=== PATIENT | female | born 1940 | race Caucasian/White ===

== ENCOUNTER 2016-08-17 10:08 | Inpatient (IN) | payer MEDICARE ==
[~2016-08-17] VITALS: Ht 170.2 cm; Wt 89.9 kg
[2016-08-17 10:58] LABS: VENOUS BASE EXCESS -1.8 (-2.0-2.0); VENOUS O2 SATURATION 96.3 % (60.0-80.0); VENOUS PARTIAL PRESSURE CO2 35.1 mmHg (38.0-50.0); VENOUS PARTIAL PRESSURE O2 81.2 mmHg (30.0-50.0); VENOUS TOTAL CO2 23.3 MEQ/L (24.0-28.0)
[2016-08-17] MEDS ORDERED: ONDANSETRON 4MG/2ML VIAL (J2405) IV PRN (11:45)
[2016-08-17] MEDS ORDERED: GLUCAGON FOR INJ 1 MG VIAL (J1610) SC PRN (11:45)
[2016-08-17] MEDS ORDERED: DEXTROSE 50% 50 ML SYRINGE IV PRN (11:45)
[2016-08-17] MEDS ORDERED: GLUCOSE 4 GM CHEW TABLET PO PRN (11:45)
[2016-08-17] MEDS ORDERED: PRAV20TA2 PO (11:57)
[2016-08-17] MEDS ORDERED: MILKSUS PO (11:57)
[2016-08-17] MEDS ORDERED: TRAD5TAB PO (11:57)
[2016-08-17] MEDS ORDERED: GLIP5TAB15 PO (11:57)
[2016-08-17] MEDS ORDERED: MUCI600T34 PO (11:57)
[2016-08-17] MEDS ORDERED: LISI-538 PO (11:57)
[2016-08-17] MEDS ORDERED: MAGN250T2 PO (11:57)
[2016-08-17] MEDS ORDERED: VITA100072 PO (11:57)
[2016-08-17] MEDS ORDERED: FURO20TA2 PO (11:57)
[2016-08-17] MEDS ORDERED: METF1000 PO (11:57)
[2016-08-17] MEDS ORDERED: AMLO5TAB2 PO (11:57)
[2016-08-17] MEDS ORDERED: LACT10SO29 PO (11:57)
[2016-08-17] MEDS ORDERED: DRIS50002 PO (11:57)
[2016-08-17] MEDS ORDERED: ATEN50TA2 PO (11:57)
[2016-08-17] MEDS ORDERED: IBUPOTC PO (11:57)
[2016-08-17] MEDS ORDERED: KLOR1CAP2 PO (11:57)
[2016-08-17] MEDS ORDERED: BISA10SU4 PR (11:57)
[2016-08-17] MEDS ORDERED: FLEEENE4 PR (11:57)
[2016-08-17] MEDS: HumaLOG INSULIN (NovoLOG) PER UNIT SC SCH ×3 (12:00→21:00)
[2016-08-17] MEDS: LACTULOSE 20 GM/30 ML SYRUP UD PO SCH ×2 (12:00→17:16)
[2016-08-17] MEDS ORDERED: ONDANSETRON 4MG/2ML VIAL (J2405) As Ordered ONE (12:25)
[2016-08-17 12:29] LABS: MEAN CORPUSCULAR HEMOGLOBIN 32.6 pg (27.0-33.0); MEAN CORPUSCULAR HGB CONC 31.6 g/dl (32.0-36.5); MEAN CORPUSCULAR VOLUME 103.2 fl (80.0-96.0); RED CELL DISTRIBUTION WIDTH 16.2 % (11.5-14.5); WHITE BLOOD COUNT 3.8 K/mm3 (4.0-10.0)
[2016-08-17 12:49] LABS: ALBUMIN 2.8 GM/DL (3.2-5.2); ALBUMIN/GLOBULIN RATIO 0.72 (1.00-1.93); ALKALINE PHOSPHATASE 146 U/L (45-117); ALT/SGPT 28 U/L (12-78); ANION GAP 12 MEQ/L (8-16); AST/SGOT 37 U/L (15-37); BILIRUBIN,TOTAL 2.8 MG/DL (0.2-1.0); BLOOD UREA NITROGEN 12 MG/DL (7-18); CALCIUM LEVEL 7.9 MG/DL (8.8-10.2); CARBON DIOXIDE LEVEL 24 MEQ/L (21-32); CHLORIDE LEVEL 108 MEQ/L (98-107); CREATININE FOR GFR 0.79 MG/DL (0.55-1.02); GLOMERULAR FILTRATION RATE > 60.0 (>39); GLUCOSE, FASTING 158 MG/DL (83-110); POTASSIUM SERUM 3.4 MEQ/L (3.5-5.1); SODIUM LEVEL 144 MEQ/L (136-145); TOTAL PROTEIN 6.7 GM/DL (6.4-8.2)
[2016-08-17 12:50] LABS: INR 1.58
[2016-08-17] MEDS ORDERED: IBUPROFEN 100 MG/5 ML SUSP UDC As Ordered ONE (13:15)
--- NOTE | 2016-08-17 14:19 | EDDOCDS ---
Physician Documentation [facility] Name: Laurie Ndiaye Age: 76 yrs Sex: Female : 1940 Arrival Date: 08/17/2016 Time: 10:08 Bed Admit Hold Private MD: Disposition: 08/17/16 10:48 Hospitalization ordered by Isrrael Thompson for Inpatient Admission. Preliminary diagnosis are Urinary tract infection, site not specified, Nonspecific elevation of levels of transaminase and lactic acid dehydrogenase [LDH]. - Bed requested for PCU. - Status is Inpatient Admission. murtazak - Condition is Stable. - Problem is new. - Symptoms are unchanged. Historical: - Allergies: PENICILLINS (Rash); SULFA (SULFONAMIDES) (Rash); Avelox (Unknown); tylenol (Affects liver function); liver failure; - Home Meds: 1. amlodipine 5 mg Oral tab 1 tab once daily (Last dose: 08/17/2016) 2. atenolol 50 mg Oral tab 1 tab once daily (Last dose: 08/16/2016) 3. Bisacodyl 10 mg Oral as needed 4. furosemide 20 mg Oral tab 1 tab once daily 5. glipizide 5 mg Oral tr24 1 tab once daily 6. lactulose 10 gram/15 mL (15 mL) Oral soln 5 mL as needed 7. lisinopril 20 mg Oral tab 1 tab once daily 8. magnesium oxide 250 mg Oral tab daily 9. metformin 1,000 mg Oral tab 2 times per day 10. Milk of Magnesia Oral as needed 11. pravastatin 20 mg oral tab 1 tab once daily 12. Vitamin B-12 1,000 mcg Oral tab daily 13. Vitamin D Oral 1,000 unit daily 14. Zoloft 25 mg Oral tab 1 tab once daily 15. Tradjenta 5 mg oral tab 1 tab once daily - PMHx: Hypertension; Hypercholesterolemia; diabetes; - Family history: Not pertinent. - Social history: Smoking status: Patient states was never smoker of tobacco. No barriers to communication noted. - : The pt / caregiver states he / she is not on anticoagulants. Home medication list is obtained from transfer record. - Exposure Risk Screening:: None identified. Vital Signs: 08/17 10:28 BP 115 / 82; Pulse 102; Resp 16; Temp 99.0(O); Weight 67.13 kg / 148 lbs; Height 5 ft. jmk 7 in. (170.18 cm); 11:41 BP 153 / 68; Pulse 110; Resp 20; Temp 101.2(O); jmk 12:33 BP 153 / 65; Pulse 114; Resp 16; Temp 101.4(TE); jmk 12:35 Temp 101.0(TE); nb2 13:26 BP 137 / 105; Pulse 114; Resp 18; Pulse Ox 94% on R/A; jmk 14:02 Temp 101.0(O); jmk 14:07 BP 119 / 57 (auto/); jmk 14:07 Pulse 106 MON; Pulse Ox 92% ; jmk 10:28 Body Mass Index 23.18 (67.13 kg, 170.18 cm) terrell MDM: 10:12 BED REQUEST+ADM ordered. EDMS 10:34 Lactic Acid (Aldana tube on ice) Ordered. EDMS 10:35 Venous Blood Gas (large pea green tube on ice) Ordered. EDMS 10:40 NS 0.9% 600 ml IV at bolus once ordered. sd1 10:59 Financial registration complete. lg 11:38 COMPLETE BLOOD COUNT Ordered. EDMS 11:38 COMPLETE COMPHRENSIVE METABOLI Ordered. EDMS 11:38 TROPONIN Ordered. EDMS 11:38 AMMONIA Ordered. EDMS 11:38 URINALYSIS Ordered. EDMS 11:38 URINE CULTURE Ordered. EDMS 11:38 BLOOD CULTURES Ordered. EDMS 11:38 BLOOD CULTURES Ordered. EDMS 11:41 Lactic Acid (Aldana tube on ice) Reviewed. sd1 11:41 Venous Blood Gas (large pea green tube on ice) Reviewed. sd1 11:41 Admission / Observation Status ordered. EDMS 11:41 2 GRAM SODIUM DIET ordered. EDMS 11:44 PROTHROMBIN TIME PROFILE\E\INR Ordered. EDMS 12:14 [facility] Payment Agreement was scanned into [employer] and attached to record. lg 12:17 LACTIC ACID LEVEL, LACTATE Ordered. EDMS 12:37 Ondansetron 4 mg IVP once ordered. jmk 12:37 NS 0.9% 1000 ml IV at 50 mL/hr continuous ordered. jmk 12:41 Fingerstick Blood Sugar Ordered. EDMS 13:27 Ibuprofen 200 mg PO once ordered. murtazak Point of Care Testing: Blood Glucose: 12:36 Blood Glucose: 136 mg/dL; jmk Ranges: Administered Medications: 10:54 Not Given (total of 3100 ml administered prior to arrival to [facility]): NS 0.9% 600 ml IV at [facility] bolus once 12:37 Drug: NS 0.9% 1000 ml Route: IV; Rate: 50 mL/hr; Site: right wrist; k 12:38 Drug: Ondansetron 4 mg Route: IVP; Site: right wrist; k 13:27 Drug: Ibuprofen 200 mg Route: PO; [facility] Signatures: Dispatcher [employer] Rachelle King MD MD sd1 Jonas Tomas,RN RN Anant Kemp, Clare Brunner lg RN RN jc4 The chart was reviewed and I authenticate all verbal orders and agree with the evaluation and treatment provided.Attachments: 12:14 [facility] Payment Agreement lg MTDD
--- NOTE | 2016-08-17 14:19 | EDDOCDS ---
Nurse's Notes [facility] Name: Laurie Garcia Age: 76 yrs Sex: Female : 1940 Arrival Date: 08/17/2016 Time: 10:08 Bed Admit Hold Private MD: Diagnosis: Urinary tract infection, site not specified;Nonspecific elevation of levels of transaminase and lactic acid dehydrogenase [LDH] Presentation: 08/17 10:13 Presenting complaint: Patient states: Resides at [facility]. seen at [facility] this AM for altered mentation. Transferred here to R/O sepsis,. pt is alert and cheerful and without complaints. Adult Sepsis Screening: The patient does not have new or worsening altered mentation. Patient's respiratory rate is less than 22. Systolic blood pressure is greater than 100. Patient has a qSOFA score of 0- Negative Sepsis Screen. Suicide/Homicide risk assessment- the patient denies having any suicidal and/or homicidal ideations and does not present with any other emotional, behavioral or mental health complaints. Status: Patient is not a service greeter or dependent. Transition of care: patient was not received from another setting of care. 10:13 Acuity: KATIE Level 3 [facility] 10:13 Method Of Arrival: Ambulance [facility] Historical: - Allergies: PENICILLINS (Rash); SULFA (SULFONAMIDES) (Rash); Avelox (Unknown); tylenol (Affects liver function); liver failure; - Home Meds: 1. amlodipine 5 mg Oral tab 1 tab once daily (Last dose: 08/17/2016) 2. atenolol 50 mg Oral tab 1 tab once daily (Last dose: 08/16/2016) 3. Bisacodyl 10 mg Oral as needed 4. furosemide 20 mg Oral tab 1 tab once daily 5. glipizide 5 mg Oral tr24 1 tab once daily 6. lactulose 10 gram/15 mL (15 mL) Oral soln 5 mL as needed 7. lisinopril 20 mg Oral tab 1 tab once daily 8. magnesium oxide 250 mg Oral tab daily 9. metformin 1,000 mg Oral tab 2 times per day 10. Milk of Magnesia Oral as needed 11. pravastatin 20 mg oral tab 1 tab once daily 12. Vitamin B-12 1,000 mcg Oral tab daily 13. Vitamin D Oral 1,000 unit daily 14. Zoloft 25 mg Oral tab 1 tab once daily 15. Tradjenta 5 mg oral tab 1 tab once daily - PMHx: Hypertension; Hypercholesterolemia; diabetes; - Family history: Not pertinent. - Social history: Smoking status: Patient states was never smoker of tobacco. No barriers to communication noted. - : The pt / caregiver states he / she is not on anticoagulants. Home medication list is obtained from transfer record. - Exposure Risk Screening:: None identified. Screenin:09 Infection Control. deg 10:29 Screening information is obtained from the patient. Fall risk: No risks identified. terrell Assistance ADL's: Requires assistance with meal preparation, this assistance is provided by residence staff, bathing, assistance is provided by residence staff, dressing, assistance is provided by residence staff, housework, assistance is provided by residence staff, medication administration, assistance is provided by residence staff. Abuse/DV Screen: The patient / caregiver reports he/she is: not in a situation that causes fear, pain or injury. Nutritional screening: No deficits noted. Advance Directives: Currently, there is a health care proxy, jaida garcia. There is no active DNR order. There is no living will. There is no Power of Paraeducator. home support is adequate. Assessment: 10:35 General: Appears in no apparent distress, smiling pleasant. responses eagerly provided. terrell denies urinary symptoms, but indicates her problem is a UTI. Gomez catheter intact with clear yellow urine draining. presently alert and oriented. chest CTA. without resp distress or work of breathing. chest CTA. abd soft and non distended with bowel sounds present x 4. monitor is st without ectopy. SL intact to right forearm. Neurological: Level of Consciousness is awake, alert, Oriented to person, place, Locomotive Mechanic are equal bilaterally. Cardiovascular: Capillary refill < 3 seconds Clubbing of nail beds is absent Heart tones S1 S2 present Edema is absent. Rhythm is sinus tachycardia. Respiratory: No deficits noted. Airway is patent Respiratory effort is even, unlabored, Respiratory pattern is regular, Breath sounds are clear bilaterally. GI: Abdomen is flat, non- distended obese, Bowel sounds present X 4 quads. Abd is soft and non tender X 4 quads. : intact gomez with clear liquid draiange. 12:07 General: Appears quietly resting. denies pain. Gomez with clear yellow drainage. [facility] hospitalist paged to obtain fever therapy. 12:33 General: Appears confused and restless.. Unable to volunteer information. vomited large jmk amount bile colored liquid emesis. cleansed and repositioned. resistant to interventions. IV fluids again intiated and medicated with zofran. 13:24 General: Appears resting with eyes closed. does have a verbal response of no to jmk interventions and attempts to resist. without resp distress. chest CTA. maintaining sat of 94% room air. chest CTA. abd unremarkable. Gomez draining clear yellow urine. Moves all ext readilly.. 14:00 General: Appears Mentation has again returned to as when 1st arrived to ED. k 14:15 General: Appears again alert and conversive. Monitor has remained as st. denies pain. [facility] Gomez is patent. no resp distress. IV infusing. denies additional nausea. smiling, conversive and cooperative. Admitted. Vital Signs: 10:28 BP 115 / 82; Pulse 102; Resp 16; Temp 99.0(O); Weight 67.13 kg; Height 5 ft. 7 in. [facility] (170.18 cm); 11:41 BP 153 / 68; Pulse 110; Resp 20; Temp 101.2(O); jmk 12:33 BP 153 / 65; Pulse 114; Resp 16; Temp 101.4(TE); jmk 12:35 Temp 101.0(TE); nb2 13:26 BP 137 / 105; Pulse 114; Resp 18; Pulse Ox 94% on R/A; k 14:02 Temp 101.0(O); k 14:07 BP 119 / 57 (auto/); k 14:07 Pulse 106 MON; Pulse Ox 92% ; jmk 10:28 Body Mass Index 23.18 (67.13 kg, 170.18 cm) [facility] Vitals: 10:28 Log In Time N/A - ambulance arrival. [facility] ED Course: 10:09 Patient visited by Diane Gardiner, Cash Posting Clerk. deg 10:09 Patient moved to Waiting deg 10:10 Patient moved to 5 deg 10:11 Rachelle Conrad MD is Attending Physician. sd1 10:16 Triage Initiated [facility] 10:19 Patient visited by Rachelle Conrad MD. sd1 10:29 The patient / caregiver is instructed regarding the plan of care and ED course. jmk 10:29 Maintain field IV. Gauge & site: 20 right forearm. jmk 10:38 Patient visited by Jonas Tomas,RN. jmk 10:48 Isrrael Thompson is Hospitalizing Provider. sd1 10:48 Venous Blood Gas (large pea green tube on ice) Sent. jmk 10:48 Lactic Acid (Aldana tube on ice) Sent. jmk 11:26 Notified attending ED physician of lactic acid level 6.0 as reported via phone by lab jc4 staff. Dr. Conrad made aware. 11:53 Patient moved to Admit Hold jc4 12:09 Patient visited by Jonas Tomas,ANDRIY. jmk 12:14 Patient name changed from Laurie\S\\S\Senthil\S\ to Laurie\S\M\S\Senthil. EDMS 12:14 [facility] Payment Agreement was scanned into [employer] and attached to record. lg 12:35 Patient visited by Amber Mercado. nb2 14:07 No procedures done that require assistance. k Administered Medications: 10:54 Not Given (total of 3100 ml administered prior to arrival to [facility]): NS 0.9% 600 ml IV at [facility] bolus once 12:37 Drug: NS 0.9% 1000 ml Route: IV; Rate: 50 mL/hr; Site: right wrist; jmk 12:38 Drug: Ondansetron 4 mg Route: IVP; Site: right wrist; jmk 13:27 Drug: Ibuprofen 200 mg Route: PO; k Point of Care Testing: Blood Glucose: 12:36 Blood Glucose: 136 mg/dL; k Ranges: Intake: 10:54 IV: 3100.00ml (NS); Total: 3100.00ml. k Order Results: Lab Order: Lactic Acid (Aldana tube on ice); SPEC'M 08/17/16 10:46 Test: LACTIC ACID LEVEL, LACTATE; Value: 6.0; Range: 0.4-2.0; Abnormal: Above upper panic limits; Units: MMOL/L; Status: F Lab Order: Venous Blood Gas (large pea green tube on ice); SPEC'M 08/17/16 10:46 Test: VENOUS PH; Value: 7.420; Range: 7.330-7.430; Units: UNITS; Status: F Test: VENOUS PARTIAL PRESSURE CO2; Value: 35.1; Range: 38.0-50.0; Abnormal: Below low normal; Units: mmHg; Status: F Test: VENOUS PARTIAL PRESSURE O2; Value: 81.2; Range: 30.0-50.0; Abnormal: Above high normal; Units: mmHg; Status: F Test: VENOUS TOTAL CO2; Value: 23.3; Range: 24.0-28.0; Abnormal: Below low normal; Units: MEQ/L; Status: F Test: VENOUS HCO3; Value: 22.3; Range: 23.0-27.0; Abnormal: Below low normal; Units: MEQ/L; Status: F Test: VENOUS BASE EXCESS; Value: -1.8; Range: -2.0-2.0; Status: F Test: VENOUS STANDARD HCO3; Value: 23.0; Units: MEQ/L; Status: F Test: VENOUS O2 SATURATION; Value: 96.3; Range: 60.0-80.0; Abnormal: Above high normal; Units: %; Status: F Lab Order: COMPLETE BLOOD COUNT; SPEC'M 08/17/16 12:01 Test: WHITE BLOOD COUNT; Value: 3.8; Range: 4.0-10.0; Abnormal: Below low normal; Units: K/mm3; Status: F Test: RED BLOOD COUNT; Value: 3.51; Range: 4.00-5.40; Abnormal: Below low normal; Units: M/mm3; Status: F Test: HEMOGLOBIN; Value: 11.4; Range: 12.0-16.0; Abnormal: Below low normal; Units: g/dl; Status: F Test: HEMATOCRIT; Value: 36.2; Range: 36.0-47.0; Units: %; Status: F Test: MEAN CORPUSCULAR VOLUME; Value: 103.2; Range: 80.0-96.0; Abnormal: Above high normal; Units: fl; Status: F Test: MEAN CORPUSCULAR HEMOGLOBIN; Value: 32.6; Range: 27.0-33.0; Units: pg; Status: F Test: MEAN CORPUSCULAR HGB CONC; Value: 31.6; Range: 32.0-36.5; Abnormal: Below low normal; Units: g/dl; Status: F Test: RED CELL DISTRIBUTION WIDTH; Value: 16.2; Range: 11.5-14.5; Abnormal: Above high normal; Units: %; Status: F Test: PLATELET COUNT, AUTOMATED; Value: 71; Range: 150-450; Abnormal: Below low normal; Units: k/mm3; Status: F Lab Order: COMPLETE COMPHRENSIVE METABOLI; SPEC'M 08/17/16 12:01 Test: GLUCOSE, FASTING; Value: 158; Range: 83-110; Abnormal: Above high normal; Units: MG/DL; Status: F Test: BLOOD UREA NITROGEN; Value: 12; Range: 7-18; Units: MG/DL; Status: F Test: CREATININE FOR GFR; Value: 0.79; Range: 0.55-1.02; Units: MG/DL; Status: F Test: GLOMERULAR FILTRATION RATE; Value: > 60.0; Range: >39; Status: F Test: SODIUM LEVEL; Value: 144; Range: 136-145; Units: MEQ/L; Status: F Test: POTASSIUM SERUM; Value: 3.4; Range: 3.5-5.1; Abnormal: Below low normal; Units: MEQ/L; Status: F Test: CHLORIDE LEVEL; Value: 108; Range: 98-107; Abnormal: Above high normal; Units: MEQ/L; Status: F Test: CARBON DIOXIDE LEVEL; Value: 24; Range: 21-32; Units: MEQ/L; Status: F Test: ANION GAP; Value: 12; Range: 8-16; Units: MEQ/L; Status: F Test: CALCIUM LEVEL; Value: 7.9; Range: 8.8-10.2; Abnormal: Below low normal; Units: MG/DL; Status: F Test: AST/SGOT; Value: 37; Range: 15-37; Units: U/L; Status: F Test: ALT/SGPT; Value: 28; Range: 12-78; Units: U/L; Status: F Test: ALKALINE PHOSPHATASE; Value: 146; Range: 45-117; Abnormal: Above high normal; Units: U/L; Status: F Test: BILIRUBIN,TOTAL; Value: 2.8; Range: 0.2-1.0; Abnormal: Above high normal; Units: MG/DL; Status: F Test: TOTAL PROTEIN; Value: 6.7; Range: 6.4-8.2; Units: GM/DL; Status: F Test: ALBUMIN; Value: 2.8; Range: 3.2-5.2; Abnormal: Below low normal; Units: GM/DL; Status: F Test: ALBUMIN/GLOBULIN RATIO; Value: 0.72; Range: 1.00-1.93; Abnormal: Below low normal; Status: F Test Note: ; Units are mL/min/1.73 m2 Chronic Kidney Disease Staging per NKF: Stage I & II GFR >=60 Normal to Mildly Decreased Stage III GFR 30-59 Moderately Decreased Stage IV GFR 15-29 Severely Decreased Stage V GFR <15 Very Little GFR Left ESRD GFR <15 on MAINTENANCE PAINTER APPRENTICE Lab Order: TROPONIN; SPEC'M 08/17/16 12:01 Test: TROPONIN I; Value: 0.02; Range: < 0.10; Units: NG/ML; Status: F Test Note: ; Troponin I Reference Interval for Visonys LOCI: 99th Percentile= 0.00-0.045 ng/ml Risk Stratification: <= 0.10 ng/ml Decreased Risk for Adverse Clinical Events. 0.10-1.50 ng/ml Increased Risk for Adverse Clinical Events. Evaluation of additional criterion and/or repeat testing in 2-6 hours is suggested to rule out myocardial damage. >= 1.50 ng/ml Indicative of Myocardial Injury. Lab Order: AMMONIA; SPEC'M 08/17/16 12:01 Test: AMMONIA; Value: 79; Range: <32; Abnormal: Above high normal; Units: uMOL/L; Status: F Lab Order: PROTHROMBIN TIME PROFILE\E\INR; SPEC'M 08/17/16 12:01 Test: PROTHROMBIN TIME; Value: 19.0; Range: 12.3-14.5; Abnormal: Above high normal; Units: SECONDS; Status: F Test: INR; Value: 1.58; Status: F Test Note: ; THERAPUTIC HUMAN INR VALUES INDICATIONS NORMAL RANGES PROPHYLAXIS/TREATMENT OF: VENOUS THROMBOSIS 2.0-3.0 PULMONARY EMBOLISM 2.0-3.0 PREVENTION OF SYSTEMIC EMBOLISM FROM: TISSUE HEART VALVES 2.0-3.0 ACUTE MYOCARDIAL INFARCTION 2.0-3.0 VALVULAR HEART DISEASE 2.0-3.0 ATRIAL FIBRILLATION 2.0-3.0 MECHANICAL VALVES(HIGH RISK) 2.5-3.5 RECURRENT MYOCARDIAL INFARCTION 2.5-3.5 Lab Order: Fingerstick Blood Sugar; DENISHA'M 08/17/16 12:32 Test: BEDSIDE GLUCOSE; Value: 161; Range: 83-110; Abnormal: Above high normal; Units: MG/DL; Status: F Outcome: 10:48 Decision to Hospitalize by Provider. sd1 13:40 Admission hand-off: Report called to ruth ann barton. terrell 14:07 Discharge Assessment: Patient awake, alert and oriented x 3. No cognitive and/or k functional deficits noted. Patient verbalized understanding of disposition instructions. patient administered narcotics - no. The following High Risk Discharge criteria are identified: None. Admitted to PCU accompanied by nurse, via stretcher, on monitor, with chart. Condition: good. No special radiology studies were completed. Property :Personal belongings accompany Pt. 14:18 Patient left the ED. terrell Signatures: Dispatcher [employer] EDRachelle Pierson MD MD sd1 Diane Gadriner, Cash Posting Clerk Unit deg Jonas Tomas,RN RN Anant Kemp, Clare Brunner lg, RN RN Amber Hsieh [id number]
[2016-08-17 14:48] VITALS: BP 108/52
[2016-08-17] MEDS: cefTRIAXone SOD 1 GM in D5W MINI-BAG PLUS 50 ML IV SCH (15:55)
[2016-08-17] MEDS: NS 1,000 ML IV SCH (15:56)
--- NOTE | 2016-08-17 20:52 | HPE ---
DATE OF ADMISSION: 08/17/2016 CHIEF COMPLAINT: Fatigue and confusion. PRIMARY CARE PHYSICIAN: Dr. Douglas at [facility]. DREDGE HAND: Dr. Tigist Simons. HISTORY OF PRESENT ILLNESS: The patient is a 76-year-old female who is a resident at [facility] and follows with Dr. Douglas, who over the last several days has reportedly been getting more lethargic and difficult to arouse in the evenings, and confused this morning. They had difficulty arousing her. She was found to be confused and as such, was sent to [facility]. At the time of her presentation there, she was found to be febrile with temperature of 101.9, and she was found to have lactic acid elevated at 7.2, elevated ammonia level 247, as well as some thrombocytopenia despite not being hypotensive. Given her elevated lactic acid and also she did have an abnormal urinalysis (UA), they felt that she would be better served with a facility that had clinical care and as such, she was transferred to the emergency room at [facility]. Upon my arrival to meet the patient, she is accompanied by her aunt and her daughter, who states the patient is back at her baseline in terms of cognitive functioning. She is awake, alert, and oriented to person and place, but not to time. She is aware of the situation and why she is in the hospital, but she cannot tell me the day. She cannot tell me the correct year or month. She is quite conversational, however, and denies any specific complaints at this time. She states that her urine has smelled abnormal, as though she has a urinary tract infection as she has had them in the past. Denies any kody increased frequency, urgency or dysuria. She did have a Zhao catheter placed at [facility]. She otherwise denies fevers or feeling unwell. She tells me that she has not been taking her lactulose as she is supposed to at the [facility] because it gives her diarrhea and she did not want to take it. PAST MEDICAL HISTORY: 1. Mild dementia. 2. Hypertension. 3. Dyslipidemia. 4. Diabetes. 5. 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 The patient is unsure if it is C. 6. Vitamin D deficiency. 7. B-cell lymphoma. PAST SURGICAL HISTORY: 1. Cholecystectomy. 2. Hysterectomy. ALLERGIES: 1. PENICILLIN, rash. 2. SULFA, rash. 3. AVELOX, unknown. 4. TYLENOL secondary to liver dysfunction. HOME MEDICATIONS: - Norvasc 5 mg daily - atenolol 50 mg daily - bisacodyl 10 mg as needed - Lasix 20 mg daily - glipizide 5 mg daily - lactulose 10 grams per 15 mL, 5 mL as needed - lisinopril 20 mg daily - magnesium oxide 250 mg daily - metformin 1 gram twice a day - milk of magnesia as needed - pravastatin 20 mg daily - vitamin B12 1000 mcg daily - vitamin D 1000 units daily - Zoloft 25 mg daily - Tradjenta 5 mg daily REVIEW OF SYSTEMS: Negative other than in history of present illness (HPI). FAMILY HISTORY: Noncontributory. SOCIAL HISTORY: The patient denies tobacco or alcohol or illicit drug use. [facility] a [facility]. PHYSICAL EXAMINATION: VITAL SIGNS: Blood pressure 115/52, pulse 102, respiratory rate 16, temperature 99. Temperature maximum (T-max) reportedly at [facility] 101.9. GENERAL: She is a pleasant, elderly female lying flat on a stretcher. Appears to be in no acute distress whatsoever. HEENT: Cranial nerves II through XII are grossly intact. She has dry mucous membranes. No elevation of central venous pressure. CARDIOVASCULAR: S1, S2 regular with a crescendo-decrescendo systolic murmur. RESPIRATORY: Clear. ABDOMEN: Benign. No suprapubic tenderness or costovertebral angle tenderness. EXTREMITIES: No clubbing, cyanosis or edema. LABORATORY DATA: From [facility], WBC is 4.7, hemoglobin 10.3, platelet count 69. Ammonia 247. Lactic acid 7.2. INR 1.6. Anion gap 18. Sodium 139, potassium 3.2, chloride 100, bicarbonate 21, BUN 11, creatinine 0.6, glucose 219. Urinalysis is abnormal for too numerous to count WBCs, as well as significant amount of leukocyte esterase and bacteria. ASSESSMENT AND PLAN: This is a 76-year-old female with metabolic encephalopathy possibly secondary to urinary tract infection versus hepatic encephalopathy, as well as lactic acidosis. 1. Metabolic encephalopathy. Seems to be resolving and waxing and waning mental status. I suspect the patient has underlying dementia which has been worsened by urinary tract infection. Her ammonia level is significantly elevated but, given that her symptoms have already improved, I doubt this is the etiology as she has not received any significant lactulose. I will start her on lactulose 15 every six hours. It will be held for bowel movements greater than six. She did not exhibit asterixis on her exam. Suspicion for this is lower, so it is more likely related to a urinary tract infection. She has been started on ceftriaxone which I will continue. I will obtain blood cultures, urine culture, and repeat a urinalysis here. She is hemodynamically stable. I do not think she needs critical care. I will admit her. 2. Lactic acidosis. Appears to be disproportionate to the sepsis syndrome the patient is presenting with. She is not hemodynamically unstable. She is well perfused. She has baseline renal function. I suspect this may be more related to metformin use and as such, I will discontinue her oral antihyperglycemics and start her on insulin sliding scale, consistent carbohydrate diet, and continue to monitor. I will check another lactic acid now and trend. I will gently hydrate her and admit her to the progressive care unit with close monitoring. 3. Liver cirrhosis. May also be the likely etiology for her thrombocytopenia and elevated INR. We will recheck and simply monitor these for now. She thinks it is secondary to hepatitis C but she is unsure. We will order a specialist regarding this. For the time being, we will hold her Lasix. 4. Hypertension. Given that she has an elevated lactic acid and she is normotensive, for the time being I will hold her Norvasc 5 mg, atenolol 50 mg, and lisinopril 20 mg, as well as her Lasix 20 mg. Should she become more hemodynamically stable, I would restart her amlodipine and atenolol first if she requires some medication for hypertension. 5. Dyslipidemia. Continue with pravastatin. 6. Depression. Continue with Zoloft. 7. Vitamin D deficiency. Continue with supplementation. 8. Thrombocytopenia likely related to cirrhosis. DISPOSITION: The patient is admitted to the progressive care unit. We will monitor. Should all of her symptoms resolve, she can likely disposition back to [facility] as soon as possible.
[2016-08-17 21:08] VITALS: BP 139/64
[2016-08-17] MEDS: PRAVASTATIN 20 MG TAB PO SCH (21:24)
[2016-08-17] MEDS: IBUPROFEN 200 MG TAB PO PRN (21:26)
[2016-08-17 23:20] VITALS: BP 130/58
[2016-08-18 05:46] LABS: MEAN CORPUSCULAR HEMOGLOBIN 32.3 pg (27.0-33.0); MEAN CORPUSCULAR HGB CONC 30.5 g/dl (32.0-36.5); MEAN CORPUSCULAR VOLUME 105.9 fl (80.0-96.0); RED CELL DISTRIBUTION WIDTH 16.3 % (11.5-14.5)
[2016-08-18 05:58] LABS: ANION GAP 10 MEQ/L (8-16); BLOOD UREA NITROGEN 13 MG/DL (7-18); CALCIUM LEVEL 7.6 MG/DL (8.8-10.2); CARBON DIOXIDE LEVEL 25 MEQ/L (21-32); CHLORIDE LEVEL 110 MEQ/L (98-107); CREATININE FOR GFR 0.68 MG/DL (0.55-1.02); GLOMERULAR FILTRATION RATE > 60.0 (>39); GLUCOSE, FASTING 163 MG/DL (83-110); POTASSIUM SERUM 3.5 MEQ/L (3.5-5.1); SODIUM LEVEL 145 MEQ/L (136-145)
[2016-08-18] MEDS: LACTULOSE 20 GM/30 ML SYRUP UD PO SCH ×4 (06:07→17:15)
[2016-08-18 07:48] VITALS: BP 131/66
[2016-08-18] MEDS: HumaLOG INSULIN (NovoLOG) PER UNIT SC SCH ×4 (08:32→20:11)
[2016-08-18] MEDS: NS 1,000 ML IV SCH (08:32)
[2016-08-18] MEDS ORDERED: VITAMIN D 1,000 INTERNATIONAL UNITS TABLET PO SCH (09:00)
[2016-08-18] MEDS ORDERED: SERTRALINE HCL 25 MG TABLET PO SCH (09:00)
--- NOTE | 2016-08-18 09:57 | IPNPDOC ---
Date of Service/Time 08/18/16 Progress Note SUBJECTIVE: The patient reports feeling well she has no specific complaints at this time she is disoriented to place and situation as well as to date she is only oriented to person OBJECTIVE: PHYSICAL EXAMINATION: VITAL SIGNS: MAXIMUM TEMPERATURE 101.1, heart rate 107 otherwise Please see below. GENERAL: Pleasant elderly female sitting up in bed she is in no distress whatsoever HEENT:. Pupils are equally round and reactive to light she has moist mucous membranes CARDIOVASCULAR: S1-S2 regular. RESPIRATORY:. Auscultation. ABDOMINAL: Benign EXTREMITIES: No clubbing cyanosis or edema LABORATORY DATA: Lactic acid continues to trend down mild pancytopenia otherwise Please see below. MICROBIOLOGY: [Blood cultures are pending a UA and urine cultures have not been obtained at [facility] as of yet despite having Zhao catheter and spoke with nursing staff regarding this, urine culture from outside hospitals unavailable for review at this time] IMAGING: [No new imaging] DVT prophylaxis ordered?: [Sequentials and teds no firm glottic region secondary to thrombocytopenia] ASSESSMENT AND PLAN: This is a 76-year-old female with [dementia and cirrhosis presenting with delirium likely acute on chronic encephalopathy secondary to urinary tract infection]. Problem #1 sepsis secondary to urinary source: The patient is febrile and tachycardic with likely urinary source given her UA conducted at outside hospital we'll try to obtain urine cultures more when he may have results back regarding sensitivities for the time being we'll keep her on Phenergan biotics does appear to be improving. The patient has a history of repeated urinary tract infections in the past. Problem #2 encephalopathy: Patient has an element of dementia and is a sn[facility] resident. At that she also may have had some hepatic encephalopathy secondary to medication nonadherence with her lactulose to her snf. She is received and she has been here and although her ammonia level remains elevated she does not appear to be lethargic she has no asterixis on her examination did not feel that this is playing a role in her presentation and that she is more likely having acute on chronic encephalopathy was secondary to the urinary tract infection. But she does appear improved today Problem #3 lactic acidosis: Likely secondary to metformin use sepsis syndrome did not compromise her blood pressure at any point although we do have her on IV fluids lactic acid is trending down with only holding her metformin. We'll continue to hold metformin upon discharge consider transitioning patient on additional oral agent versus insulin Problem #4 liver cirrhosis: The patient does not know why she has cirrhosis but believes is secondary to hepatitis C she follows with Rachelle Simons surgery regarding this for the time being we are holding her home Lasix. The patient does have an elevated INR as well as some mild thrombocytopenia and pancytopenia likely related to her cirrhosis. Problem #5 hypertension the patient had an elevated lactic acid and presented with sepsis syndrome and as such her Norvasc 5 g as well as atenolol 50 mg and lisinopril 20 mg and her Lasix 20 mg which all been held. Should she become hypertensive would restart her Norvasc and atenolol first. Problem #6 dyslipidemia continue with pravastatin. Problem #7 vitamin D deficiency: Continue his muscle supplementation DISPOSITION: [Patient is currently improving would like her to see her 24 hours fever free as well as obtain cultures and sensitivities prior to disposition in her back to her snf]. VS, I&O, 24H, Fishbone VS, I&O, 24H, Fishbone Vital Signs Date Time Temp Pulse Resp B/P Pulse Ox O2 Delivery O2 Flow Rate FiO2 08/18/16 07:48 97.0 107 18 131/66 98 Room Air I&O- Last 24 Hours up to 6 AM 08/18/16 06:00 Intake Total 1810 ml Output Total 1075 ml Balance 735 ml Laboratory Tests 2 08/17/16 10:46: Blood Gas Bicarbonate Standard 23.0, Lactic Acid Level 6.0*H, Venous Blood Base Excess -1.8, Venous Blood pH 7.420, Venous Blood Partial Pressure CO2 35.1L, Venous Blood Partial Pressure O2 81.2H, Venous Blood Total Carbon Dioxide 23.3L , Venous Blood HCO3 22.3L, Venous Blood Oxygen Saturation 96.3H 08/17/16 12:01: Blood Urea Nitrogen 12, Creatinine 0.79, Sodium Level 144, Potassium Level 3.4L , Chloride Level 108H, Carbon Dioxide Level 24, Calcium Level 7.9L, Aspartate Amino Transf (AST/SGOT) 37, Alanine Aminotransferase (ALT/SGPT) 28, Alkaline Phosphatase 146H, Total Bilirubin 2.8H, Total Protein 6.7, Albumin 2.8L, Albumin /Globulin Ratio 0.72L, Ammonia 79H, Anion Gap 12, Glomerular Filtration Rate > 60.0, Prothromb Time International Ratio 1.58, Prothrombin Time 19.0H, Troponin I 0.02 08/17/16 12:32: Bedside Glucose (Misc Panel) 161H 08/17/16 16:04: Lactic Acid Level 3.3*H 08/17/16 16:58: Bedside Glucose (Misc Panel) 199H 08/17/16 20:21: Bedside Glucose (Misc Panel) 196H 08/18/16 05:27: Anion Gap 10, Blood Urea Nitrogen 13, Creatinine 0.68, Sodium Level 145, Potassium Level 3.5, Chloride Level 110H, Carbon Dioxide Level 25, Calcium Level 7.6L, Glomerular Filtration Rate > 60.0 08/18/16 06:55: Ammonia 81H, Lactic Acid Level 2.5*H Laboratory Tests 08/17/16 12:01 Calcium Level 7.9 L, Aspartate Amino Transf (AST/SGOT) 37, Alanine Aminotransferase (ALT/SGPT) 28, Alkaline Phosphatase 146 H, Total Bilirubin 2.8 H, Total Protein 6.7, Albumin 2.8 L, Red Blood Count 3.51 L, Mean Corpuscular Volume 103.2 H, Mean Corpuscular Hemoglobin 32.6, Mean Corpuscular Hemoglobin Concent 31.6 L, Red Cell Distribution Width 16.2 H 08/18/16 05:27 Calcium Level 7.6 L, Red Blood Count 3.27 L, Mean Corpuscular Volume 105.9 H, Mean Corpuscular Hemoglobin 32.3, Mean Corpuscular Hemoglobin Concent 30.5 L, Red Cell Distribution Width 16.3 H Microbiology 08/17/16 Blood Culture, Received Pending 08/17/16 Blood Culture, Received Pending RO ROMERO MD Aug 18, 2016 09:57
[2016-08-18 12:00] VITALS: BP 145/67
[2016-08-18] MEDS: cefTRIAXone SOD 1 GM in D5W MINI-BAG PLUS 50 ML IV SCH (15:31)
[2016-08-18 16:00] VITALS: BP 156/62
[2016-08-18 20:00] VITALS: BP 136/67
[2016-08-18] MEDS: PRAVASTATIN 20 MG TAB PO SCH (20:11)
[2016-08-18 23:59] VITALS: BP 135/82
[2016-08-19] MEDS: LACTULOSE 20 GM/30 ML SYRUP UD PO SCH ×5 (00:50→18:09)
[2016-08-19] MEDS: NS 1,000 ML IV SCH (04:16)
[2016-08-19 06:03] LABS: MEAN CORPUSCULAR HEMOGLOBIN 32.8 pg (27.0-33.0); MEAN CORPUSCULAR HGB CONC 32.9 g/dl (32.0-36.5); RED CELL DISTRIBUTION WIDTH 17.4 % (11.5-14.5); WHITE BLOOD COUNT 4.6 K/mm3 (4.0-10.0)
[2016-08-19 06:21] LABS: MEAN CORPUSCULAR VOLUME 101.2 fl (80.0-96.0)
[2016-08-19 06:26] LABS: ANION GAP 9 MEQ/L (8-16); BLOOD UREA NITROGEN 16 MG/DL (7-18); CALCIUM LEVEL 7.3 MG/DL (8.8-10.2); CARBON DIOXIDE LEVEL 26 MEQ/L (21-32); CHLORIDE LEVEL 106 MEQ/L (98-107); CREATININE FOR GFR 0.64 MG/DL (0.55-1.02); GLOMERULAR FILTRATION RATE > 60.0 (>39); GLUCOSE, FASTING 139 MG/DL (83-110); POTASSIUM SERUM 3.6 MEQ/L (3.5-5.1); SODIUM LEVEL 141 MEQ/L (136-145)
[2016-08-19 08:00] VITALS: BP 140/68
[2016-08-19] MEDS: HumaLOG INSULIN (NovoLOG) PER UNIT SC SCH ×4 (08:48→20:28)
--- NOTE | 2016-08-19 10:29 | IPNPDOC ---
Date of Service/Time 08/19/16 Progress Note SUBJECTIVE: The patient denies any complaints at this time the patient remembers who I am and is actually able to say my name however she is unable to recall where she is why she is here. OBJECTIVE: PHYSICAL EXAMINATION: VITAL SIGNS: otherwise Please see below. GENERAL: Pleasant elderly female sitting up in bed she is in no distress whatsoever HEENT:. Pupils are equally round and reactive to light she has moist mucous membranes CARDIOVASCULAR: S1-S2 regular. RESPIRATORY:. Auscultation. ABDOMINAL: Benign EXTREMITIES: No clubbing cyanosis or edema LABORATORY DATA: Lactic acid continues to trend down hypomagnesemia otherwise Please see below. MICROBIOLOGY: Urine culture from [place] reveals Klebsiella pneumoniae resistant only to ampicillin but otherwise pansensitive IMAGING: No new imaging DVT prophylaxis ordered?: Sequentials and teds no pharmacological agents secondary to thrombocytopenia ASSESSMENT AND PLAN: This is a 76-year-old female with dementia and cirrhosis presenting with delirium likely acute on chronic encephalopathy secondary to urinary tract infection. Problem #1 sepsis secondary to urinary source: The patient was febrile and tachycardic with likely urinary source will continue on IV ceftriaxone as her infection is resolving leukocytosis resolved resolved fever curve trending downward Problem #2 encephalopathy: Patient has an element of dementia and is a residential resident. At that she also may have had some hepatic encephalopathy secondary to medication nonadherence with her lactulose at her residential. although her ammonia level remains elevated she does not appear to be lethargic she has no asterixis on her examination I do not feel that this is playing a role in her presentation at this time and that she is more likely having acute on chronic encephalopathy was secondary to the urinary tract infection. But she does appear to be improving daily Problem #3 lactic acidosis: Likely secondary to metformin use, sepsis syndrome did not compromise her blood pressure at any point although we do have her on IV fluids andlactic acid is trending down with only holding her metformin. We' ll continue to hold metformin upon discharge consider transitioning patient on additional oral agent versus insulin we will discontinue her IV fluids Problem #4 liver cirrhosis: The patient does not know why she has cirrhosis but believes is secondary to hepatitis C she follows with Rachelle Simons surgery regarding this for the time being we are holding her home Lasix. The patient does have an elevated INR as well as some mild thrombocytopenia and pancytopenia likely related to her cirrhosis. Problem #5 hypertension the patient had an elevated lactic acid and presented with sepsis syndrome and as such her Norvasc 5 g as well as atenolol 50 mg and lisinopril 20 mg and her Lasix 20 mg which all been held. Should she become hypertensive would restart her Norvasc and atenolol first. At this time she does not require Problem #6 dyslipidemia continue with pravastatin. Problem #7 vitamin D deficiency: Continue his muscle supplementation DISPOSITION: Patient continues to improve I suspect she may be returned to her residential the next 48 hours VS, I&O, 24H, Fishbone VS, I&O, 24H, Fishbone Vital Signs Date Time Temp Pulse Resp B/P Pulse Ox O2 Delivery O2 Flow Rate FiO2 08/19/16 08:15 Room Air 08/19/16 08:00 98.5 94 20 140/68 95 I&O- Last 24 Hours up to 6 AM 08/19/16 06:00 Intake Total 2340 ml Output Total 1590 ml Balance 750 ml Laboratory Tests 2 08/18/16 10:46: Urine Amorphous Sediment , Urine Appearance CLOUDYH, Urine Color ARTIE, Urine pH 5.0, Urine Specific [place] 1.018, Urine Protein 2+H, Urine Glucose (UA) 2+H , Urine Ketones NEGATIVE, Urine Urobilinogen 0.2, Urine Bilirubin NEGATIVE, Urine Leukocyte Esterase 3+H, Urine Bacteria (Auto) 3+H, Urine Blood 3+H, Urine Calcium Carbonate Cryst(Auto) , Urine Calcium Oxalate Cryst (Auto) , Urine Calcium Phosphate Gisele (Auto) , Urine Cellular Casts , Urine Cystine Crystals , Urine Granular Casts (Auto) , Urine Hyaline Casts (Auto) 0, Urine Leucine Crystals , Urine Mucus (Auto) MODERATE, Urine Nitrite NEGATIVE, Urine Oval Fat Bodies (Auto) , Urine RBC (Auto) TNTCH, Urine Renal Epithelial Cells , Urine Sperm (Auto) , Urine Squamous Epithelial Cells 1, Urine Transitional Epithelial Cells , Urine Trichomonas (Auto) , Urine Triple Phosphate Cryst (Auto) , Urine Tyrosine Crystals , Urine Uric Acid Crystals (Auto) , Urine WBC (Auto) TNTCH, Urine Waxy Casts (Auto) , Urine Yeast-Like Cells (Auto) 08/18/16 11:56: Bedside Glucose (Misc Panel) 190H 08/18/16 16:27: Bedside Glucose (Misc Panel) 180H 08/18/16 20:05: Bedside Glucose (Misc Panel) 128H 08/19/16 05:47: Anion Gap 9, Blood Urea Nitrogen 16, Creatinine 0.64, Sodium Level 141, Potassium Level 3.6, Chloride Level 106, Carbon Dioxide Level 26, Calcium Level 7.3L, Glomerular Filtration Rate > 60.0 08/19/16 07:06: Lactic Acid Level 1.9, Magnesium Level 1.6L Laboratory Tests 08/19/16 05:47 Calcium Level 7.3 L, Red Blood Count 3.34 L, Mean Corpuscular Volume 101.2 H, Mean Corpuscular Hemoglobin 32.8, Mean Corpuscular Hemoglobin Concent 32.9, Red Cell Distribution Width 17.4 H Microbiology 08/17/16 Blood Culture - Preliminary, Resulted No growth after 24 hours . All specim... 08/17/16 Blood Culture - Preliminary, Resulted No growth after 24 hours . All specim... 08/18/16 Urine Culture, Received Pending RO ROMERO MD Aug 19, 2016 10:29
[2016-08-19] MEDS ORDERED: MAG SULF 1GM/100ML (MAG RUN) 1 GM in APPROPRIATE DILUENT 1 EA IV ONE (11:00)
[2016-08-19 13:18] VITALS: BP 130/70
[2016-08-19 14:00] VITALS: BP 135/70
--- NOTE | 2016-08-19 15:19 | EDDOCDS ---
Physician Documentation [facility] Name: Laurie Ndiaye Age: 76 yrs Sex: Female : 1940 Arrival Date: 08/17/2016 Time: 10:08 Bed Admit Hold Private MD: Disposition: 08/17/16 10:48 Hospitalization ordered by Isrrael Thompson for Inpatient Admission. Preliminary diagnosis are Urinary tract infection, site not specified, Nonspecific elevation of levels of transaminase and lactic acid dehydrogenase [LDH]. - Bed requested for PCU. - Status is Inpatient Admission. murtazak - Condition is Stable. - Problem is new. - Symptoms are unchanged. Historical: - Allergies: PENICILLINS (Rash); SULFA (SULFONAMIDES) (Rash); Avelox (Unknown); tylenol (Affects liver function); liver failure; - Home Meds: 1. amlodipine 5 mg Oral tab 1 tab once daily (Last dose: 08/17/2016) 2. atenolol 50 mg Oral tab 1 tab once daily (Last dose: 08/16/2016) 3. Bisacodyl 10 mg Oral as needed 4. furosemide 20 mg Oral tab 1 tab once daily 5. glipizide 5 mg Oral tr24 1 tab once daily 6. lactulose 10 gram/15 mL (15 mL) Oral soln 5 mL as needed 7. lisinopril 20 mg Oral tab 1 tab once daily 8. magnesium oxide 250 mg Oral tab daily 9. metformin 1,000 mg Oral tab 2 times per day 10. Milk of Magnesia Oral as needed 11. pravastatin 20 mg oral tab 1 tab once daily 12. Vitamin B-12 1,000 mcg Oral tab daily 13. Vitamin D Oral 1,000 unit daily 14. Zoloft 25 mg Oral tab 1 tab once daily 15. Tradjenta 5 mg oral tab 1 tab once daily - PMHx: Hypertension; Hypercholesterolemia; diabetes; - Family history: Not pertinent. - Social history: Smoking status: Patient states was never smoker of tobacco. No barriers to communication noted. - : The pt / caregiver states he / she is not on anticoagulants. Home medication list is obtained from transfer record. - Exposure Risk Screening:: None identified. Vital Signs: 08/17 10:28 BP 115 / 82; Pulse 102; Resp 16; Temp 99.0(O); Weight 67.13 kg / 148 lbs; Height 5 ft. jmk 7 in. (170.18 cm); 11:41 BP 153 / 68; Pulse 110; Resp 20; Temp 101.2(O); jmk 12:33 BP 153 / 65; Pulse 114; Resp 16; Temp 101.4(TE); jmk 12:35 Temp 101.0(TE); nb2 13:26 BP 137 / 105; Pulse 114; Resp 18; Pulse Ox 94% on R/A; jmk 14:02 Temp 101.0(O); jmk 14:07 BP 119 / 57 (auto/); jmk 14:07 Pulse 106 MON; Pulse Ox 92% ; jmk 10:28 Body Mass Index 23.18 (67.13 kg, 170.18 cm) murtazak MDM: 10:12 BED REQUEST+ADM ordered. EDMS 10:34 Lactic Acid (Aldana tube on ice) Ordered. EDMS 10:35 Venous Blood Gas (large pea green tube on ice) Ordered. EDMS 10:40 NS 0.9% 600 ml IV at bolus once ordered. sd1 10:59 Financial registration complete. lg 11:38 COMPLETE BLOOD COUNT Ordered. EDMS 11:38 COMPLETE COMPHRENSIVE METABOLI Ordered. EDMS 11:38 TROPONIN Ordered. EDMS 11:38 AMMONIA Ordered. EDMS 11:38 URINALYSIS Ordered. EDMS 11:38 URINE CULTURE Ordered. EDMS 11:38 BLOOD CULTURES Ordered. EDMS 11:38 BLOOD CULTURES Ordered. EDMS 11:41 Lactic Acid (Aldana tube on ice) Reviewed. sd1 11:41 Venous Blood Gas (large pea green tube on ice) Reviewed. sd1 11:41 Admission / Observation Status ordered. EDMS 11:41 2 GRAM SODIUM DIET ordered. EDMS 11:44 PROTHROMBIN TIME PROFILE\E\INR Ordered. EDMS 12:14 [facility] Payment Agreement was scanned into [employer] and attached to record. lg 12:17 LACTIC ACID LEVEL, LACTATE Ordered. EDMS 12:37 Ondansetron 4 mg IVP once ordered. jmk 12:37 NS 0.9% 1000 ml IV at 50 mL/hr continuous ordered. jmk 12:41 Fingerstick Blood Sugar Ordered. EDMS 13:27 Ibuprofen 200 mg PO once ordered. jmk 15:13 T-Sheet-- Draft Copy was scanned into [employer] and attached to record. gb 15:13 PCR was scanned into [employer] and attached to record. gb 15:13 Rhythm Strip was scanned into [employer] and attached to record. Point of Care Testing: Blood Glucose: 12:36 Blood Glucose: 136 mg/dL; jmk Ranges: Administered Medications: 10:54 Not Given (total of 3100 ml administered prior to arrival to [facility]): NS 0.9% 600 ml IV at [facility] bolus once 12:37 Drug: NS 0.9% 1000 ml Route: IV; Rate: 50 mL/hr; Site: right wrist; jmk 12:38 Drug: Ondansetron 4 mg Route: IVP; Site: right wrist; k 13:27 Drug: Ibuprofen 200 mg Route: PO; [facility] Signatures: Dispatcher [employer] Rachelle King MD MD sd1 Jonas Tomas,RN RN k Milagros Teague, Reg Reg gb Anant Christopher, Reg Reg lg Clare Villa, RN RN [id number] The chart was reviewed and I authenticate all verbal orders and agree with the evaluation and treatment provided.Attachments: 12:14 [facility] Payment Agreement lg 15:13 T-Sheet-- Draft Copy Chart Complete MTDD
--- NOTE | 2016-08-19 15:19 | EDDOCDS ---
Physician Documentation [facility] Name: Laurie Ndiaye Age: 76 yrs Sex: Female : 1940 Arrival Date: 08/17/2016 Time: 10:08 Bed Admit Hold Private MD: Disposition: 08/17/16 10:48 Hospitalization ordered by Isrrael Thompson for Inpatient Admission. Preliminary diagnosis are Urinary tract infection, site not specified, Nonspecific elevation of levels of transaminase and lactic acid dehydrogenase [LDH]. - Bed requested for PCU. - Status is Inpatient Admission. murtazak - Condition is Stable. - Problem is new. - Symptoms are unchanged. Historical: - Allergies: PENICILLINS (Rash); SULFA (SULFONAMIDES) (Rash); Avelox (Unknown); tylenol (Affects liver function); liver failure; - Home Meds: 1. amlodipine 5 mg Oral tab 1 tab once daily (Last dose: 08/17/2016) 2. atenolol 50 mg Oral tab 1 tab once daily (Last dose: 08/16/2016) 3. Bisacodyl 10 mg Oral as needed 4. furosemide 20 mg Oral tab 1 tab once daily 5. glipizide 5 mg Oral tr24 1 tab once daily 6. lactulose 10 gram/15 mL (15 mL) Oral soln 5 mL as needed 7. lisinopril 20 mg Oral tab 1 tab once daily 8. magnesium oxide 250 mg Oral tab daily 9. metformin 1,000 mg Oral tab 2 times per day 10. Milk of Magnesia Oral as needed 11. pravastatin 20 mg oral tab 1 tab once daily 12. Vitamin B-12 1,000 mcg Oral tab daily 13. Vitamin D Oral 1,000 unit daily 14. Zoloft 25 mg Oral tab 1 tab once daily 15. Tradjenta 5 mg oral tab 1 tab once daily - PMHx: Hypertension; Hypercholesterolemia; diabetes; - Family history: Not pertinent. - Social history: Smoking status: Patient states was never smoker of tobacco. No barriers to communication noted. - : The pt / caregiver states he / she is not on anticoagulants. Home medication list is obtained from transfer record. - Exposure Risk Screening:: None identified. Vital Signs: 08/17 10:28 BP 115 / 82; Pulse 102; Resp 16; Temp 99.0(O); Weight 67.13 kg / 148 lbs; Height 5 ft. jmk 7 in. (170.18 cm); 11:41 BP 153 / 68; Pulse 110; Resp 20; Temp 101.2(O); jmk 12:33 BP 153 / 65; Pulse 114; Resp 16; Temp 101.4(TE); jmk 12:35 Temp 101.0(TE); nb2 13:26 BP 137 / 105; Pulse 114; Resp 18; Pulse Ox 94% on R/A; jmk 14:02 Temp 101.0(O); jmk 14:07 BP 119 / 57 (auto/); jmk 14:07 Pulse 106 MON; Pulse Ox 92% ; jmk 10:28 Body Mass Index 23.18 (67.13 kg, 170.18 cm) murtazak MDM: 10:12 BED REQUEST+ADM ordered. EDMS 10:34 Lactic Acid (Aldana tube on ice) Ordered. EDMS 10:35 Venous Blood Gas (large pea green tube on ice) Ordered. EDMS 10:40 NS 0.9% 600 ml IV at bolus once ordered. sd1 10:59 Financial registration complete. lg 11:38 COMPLETE BLOOD COUNT Ordered. EDMS 11:38 COMPLETE COMPHRENSIVE METABOLI Ordered. EDMS 11:38 TROPONIN Ordered. EDMS 11:38 AMMONIA Ordered. EDMS 11:38 URINALYSIS Ordered. EDMS 11:38 URINE CULTURE Ordered. EDMS 11:38 BLOOD CULTURES Ordered. EDMS 11:38 BLOOD CULTURES Ordered. EDMS 11:41 Lactic Acid (Aldana tube on ice) Reviewed. sd1 11:41 Venous Blood Gas (large pea green tube on ice) Reviewed. sd1 11:41 Admission / Observation Status ordered. EDMS 11:41 2 GRAM SODIUM DIET ordered. EDMS 11:44 PROTHROMBIN TIME PROFILE\E\INR Ordered. EDMS 12:14 [facility] [place] Agreement was scanned into [employer] and attached to record. lg 12:17 LACTIC ACID LEVEL, LACTATE Ordered. EDMS 12:37 Ondansetron 4 mg IVP once ordered. jmk 12:37 NS 0.9% 1000 ml IV at 50 mL/hr continuous ordered. jmk 12:41 Fingerstick Blood Sugar Ordered. EDMS 13:27 Ibuprofen 200 mg PO once ordered. jmk 15:13 T-Sheet-- Draft Copy was scanned into [employer] and attached to record. gb 15:13 PCR was scanned into [employer] and attached to record. gb 15:13 Rhythm Strip was scanned into [employer] and attached to record. Point of Care Testing: Blood Glucose: 12:36 Blood Glucose: 136 mg/dL; jmk Ranges: Administered Medications: 10:54 Not Given (total of 3100 ml administered prior to arrival to [facility]): NS 0.9% 600 ml IV at [facility] bolus once 12:37 Drug: NS 0.9% 1000 ml Route: IV; Rate: 50 mL/hr; Site: right wrist; jmk 12:38 Drug: Ondansetron 4 mg Route: IVP; Site: right wrist; k 13:27 Drug: Ibuprofen 200 mg Route: PO; [facility] Signatures: Dispatcher [employer] Rachelle King MD MD sd1 Jonas Tomas,RN RN k Milagros Teague, Reg Reg gb Anant Christopher, Reg Reg lg Clare Villa, RN RN jc4 The chart was reviewed and I authenticate all verbal orders and agree with the evaluation and treatment provided.Attachments: 12:14 [facility] [place] Agreement lg 15:13 T-Sheet-- Draft Copy Chart Complete MTDD
--- NOTE | 2016-08-19 15:19 | EDDOCDS ---
Nurse's Notes [facility] Name: Laurie Garcia Age: 76 yrs Sex: Female : 1940 Arrival Date: 08/17/2016 Time: 10:08 Bed Admit Hold Private MD: Diagnosis: Urinary tract infection, site not specified;Nonspecific elevation of levels of transaminase and lactic acid dehydrogenase [LDH] Presentation: 08/17 10:13 Presenting complaint: Patient states: Resides at [facility]. [facility] at [facility] this AM for altered mentation. Transferred here to R/O sepsis,. pt is alert and cheerful and without complaints. Adult Sepsis Screening: The patient does not have new or worsening altered mentation. Patient's respiratory rate is less than 22. Systolic blood pressure is greater than 100. Patient has a qSOFA score of 0- Negative Sepsis Screen. Suicide/Homicide risk assessment- the patient denies having any suicidal and/or homicidal ideations and does not present with any other emotional, behavioral or mental health complaints. 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 Transition of care: patient was not received from another setting of care. 10:13 Acuity: KATIE Level 3 [facility] 10:13 Method Of Arrival: Ambulance [facility] Historical: - Allergies: PENICILLINS (Rash); SULFA (SULFONAMIDES) (Rash); Avelox (Unknown); tylenol (Affects liver function); liver failure; - Home Meds: 1. amlodipine 5 mg Oral tab 1 tab once daily (Last dose: 08/17/2016) 2. atenolol 50 mg Oral tab 1 tab once daily (Last dose: 08/16/2016) 3. Bisacodyl 10 mg Oral as needed 4. furosemide 20 mg Oral tab 1 tab once daily 5. glipizide 5 mg Oral tr24 1 tab once daily 6. lactulose 10 gram/15 mL (15 mL) Oral soln 5 mL as needed 7. lisinopril 20 mg Oral tab 1 tab once daily 8. magnesium oxide 250 mg Oral tab daily 9. metformin 1,000 mg Oral tab 2 times per day 10. Milk of Magnesia Oral as needed 11. pravastatin 20 mg oral tab 1 tab once daily 12. Vitamin B-12 1,000 mcg Oral tab daily 13. Vitamin D Oral 1,000 unit daily 14. Zoloft 25 mg Oral tab 1 tab once daily 15. Tradjenta 5 mg oral tab 1 tab once daily - PMHx: Hypertension; Hypercholesterolemia; diabetes; - Family history: Not pertinent. - Social history: Smoking status: Patient states was never smoker of tobacco. No barriers to communication noted. - : The pt / caregiver states he / she is not on anticoagulants. Home medication list is obtained from transfer record. - Exposure Risk Screening:: None identified. Screenin:09 Infection Control. deg 10:29 Screening information is obtained from the patient. Fall risk: No risks identified. terrell Assistance ADL's: Requires assistance with meal preparation, this assistance is provided by residence staff, bathing, assistance is provided by residence staff, dressing, assistance is provided by residence staff, housework, assistance is provided by residence staff, medication administration, assistance is provided by residence staff. Abuse/DV Screen: The patient / caregiver reports he/she is: not in a situation that causes fear, pain or injury. Nutritional screening: No deficits noted. Advance Directives: Currently, there is a health care proxy, jaida garcia. There is no active DNR order. There is no living will. There is no Power of Protective Signal Operations Supervisor. home support is adequate. Assessment: 10:35 General: Appears in no apparent distress, smiling pleasant. responses eagerly provided. terrell denies urinary symptoms, but indicates her problem is a UTI. Gomez catheter intact with clear yellow urine draining. presently alert and oriented. chest CTA. without resp distress or work of breathing. chest CTA. abd soft and non distended with bowel sounds present x 4. monitor is st without ectopy. SL intact to right forearm. Neurological: Level of Consciousness is awake, alert, Oriented to person, place, Pulley Worker are equal bilaterally. Cardiovascular: Capillary refill < 3 seconds Clubbing of nail beds is absent Heart tones S1 S2 present Edema is absent. Rhythm is sinus tachycardia. Respiratory: No deficits noted. Airway is patent Respiratory effort is even, unlabored, Respiratory pattern is regular, Breath sounds are clear bilaterally. GI: Abdomen is flat, non- distended obese, Bowel sounds present X 4 quads. Abd is soft and non tender X 4 quads. : intact gomez with clear liquid draiange. 12:07 General: Appears quietly resting. denies pain. Gomez with clear yellow drainage. [facility] hospitalist paged to obtain fever therapy. 12:33 General: Appears confused and restless.. Unable to volunteer information. vomited large jmk amount bile colored liquid emesis. cleansed and repositioned. resistant to interventions. IV fluids again intiated and medicated with zofran. 13:24 General: Appears resting with eyes closed. does have a verbal response of no to jmk interventions and attempts to resist. without resp distress. chest CTA. maintaining sat of 94% room air. chest CTA. abd unremarkable. Gomez draining clear yellow urine. Moves all ext readilly.. 14:00 General: Appears Mentation has again returned to as when 1st arrived to ED. k 14:15 General: Appears again alert and conversive. Monitor has remained as st. denies pain. [facility] Gomez is patent. no resp distress. IV infusing. denies additional nausea. smiling, conversive and cooperative. Admitted. Vital Signs: 10:28 BP 115 / 82; Pulse 102; Resp 16; Temp 99.0(O); Weight 67.13 kg; Height 5 ft. 7 in. [facility] (170.18 cm); 11:41 BP 153 / 68; Pulse 110; Resp 20; Temp 101.2(O); jmk 12:33 BP 153 / 65; Pulse 114; Resp 16; Temp 101.4(TE); jmk 12:35 Temp 101.0(TE); nb2 13:26 BP 137 / 105; Pulse 114; Resp 18; Pulse Ox 94% on R/A; k 14:02 Temp 101.0(O); k 14:07 BP 119 / 57 (auto/); k 14:07 Pulse 106 MON; Pulse Ox 92% ; jmk 10:28 Body Mass Index 23.18 (67.13 kg, 170.18 cm) [facility] Vitals: 10:28 Log In Time N/A - ambulance arrival. [facility] ED Course: 10:09 Patient visited by Diane Gardiner, Systems Program Manager. deg 10:09 Patient moved to Waiting deg 10:10 Patient moved to 5 deg 10:11 Rachelle Conrad MD is Attending Physician. sd1 10:16 Triage Initiated [facility] 10:19 Patient visited by Rachelle Conrad MD. sd1 10:29 The patient / caregiver is instructed regarding the plan of care and ED course. jmk 10:29 Maintain field IV. Gauge & site: 20 right forearm. jmk 10:38 Patient visited by Jonas Tomas,RN. jmk 10:48 Isrrael Thompson is Hospitalizing Provider. sd1 10:48 Venous Blood Gas (large pea green tube on ice) Sent. jmk 10:48 Lactic Acid (Aldana tube on ice) Sent. jmk 11:26 Notified attending ED physician of lactic acid level 6.0 as reported via phone by lab jc4 staff. Dr. Conrad made aware. 11:53 Patient moved to Admit Hold jc4 12:09 Patient visited by Jonas Tomas,RN. jmk 12:14 Patient name changed from Laurie\S\\S\Senthil\S\ to Laurie\S\M\S\Senthil. EDMS 12:14 [facility] [place] Payment Agreement was scanned into [employer] and attached to record. lg 12:35 Patient visited by Amber Mercado. nb2 14:07 No procedures done that require assistance. jmk 15:13 T-Sheet-- Draft Copy was scanned into [employer] and attached to record. gb 15:13 PCR was scanned into [employer] and attached to record. gb 15:13 Rhythm Strip was scanned into [employer] and attached to record. gb Administered Medications: 10:54 Not Given (total of 3100 ml administered prior to arrival to [facility]): NS 0.9% 600 ml IV at [facility] bolus once 12:37 Drug: NS 0.9% 1000 ml Route: IV; Rate: 50 mL/hr; Site: right wrist; jmk 12:38 Drug: Ondansetron 4 mg Route: IVP; Site: right wrist; jmk 13:27 Drug: Ibuprofen 200 mg Route: PO; k Attachments: 15:13 Rhythm Strip Point of Care Testing: Blood Glucose: 12:36 Blood Glucose: 136 mg/dL; k Ranges: Intake: 10:54 IV: 3100.00ml (NS); Total: 3100.00ml. k Order Results: Lab Order: Lactic Acid (Aldana tube on ice); SPEC'M 08/17/16 10:46 Test: LACTIC ACID LEVEL, LACTATE; Value: 6.0; Range: 0.4-2.0; Abnormal: Above upper panic limits; Units: MMOL/L; Status: F Lab Order: Venous Blood Gas (large pea green tube on ice); [facility] 08/17/16 10:46 Test: VENOUS PH; Value: 7.420; Range: 7.330-7.430; Units: UNITS; Status: F Test: VENOUS PARTIAL PRESSURE CO2; Value: 35.1; Range: 38.0-50.0; Abnormal: Below low normal; Units: mmHg; Status: F Test: VENOUS PARTIAL PRESSURE O2; Value: 81.2; Range: 30.0-50.0; Abnormal: Above high normal; Units: mmHg; Status: F Test: VENOUS TOTAL CO2; Value: 23.3; Range: 24.0-28.0; Abnormal: Below low normal; Units: MEQ/L; Status: F Test: VENOUS HCO3; Value: 22.3; Range: 23.0-27.0; Abnormal: Below low normal; Units: MEQ/L; Status: F Test: VENOUS BASE EXCESS; Value: -1.8; Range: -2.0-2.0; Status: F Test: VENOUS STANDARD HCO3; Value: 23.0; Units: MEQ/L; Status: F Test: VENOUS O2 SATURATION; Value: 96.3; Range: 60.0-80.0; Abnormal: Above high normal; Units: %; Status: F Lab Order: COMPLETE BLOOD COUNT; [facility] 08/17/16 12:01 Test: WHITE BLOOD COUNT; Value: 3.8; Range: 4.0-10.0; Abnormal: Below low normal; Units: K/mm3; Status: F Test: RED BLOOD COUNT; Value: 3.51; Range: 4.00-5.40; Abnormal: Below low normal; Units: M/mm3; Status: F Test: HEMOGLOBIN; Value: 11.4; Range: 12.0-16.0; Abnormal: Below low normal; Units: g/dl; Status: F Test: HEMATOCRIT; Value: 36.2; Range: 36.0-47.0; Units: %; Status: F Test: MEAN CORPUSCULAR VOLUME; Value: 103.2; Range: 80.0-96.0; Abnormal: Above high normal; Units: fl; Status: F Test: MEAN CORPUSCULAR HEMOGLOBIN; Value: 32.6; Range: 27.0-33.0; Units: pg; Status: F Test: MEAN CORPUSCULAR HGB CONC; Value: 31.6; Range: 32.0-36.5; Abnormal: Below low normal; Units: g/dl; Status: F Test: RED CELL DISTRIBUTION WIDTH; Value: 16.2; Range: 11.5-14.5; Abnormal: Above high normal; Units: %; Status: F Test: PLATELET COUNT, AUTOMATED; Value: 71; Range: 150-450; Abnormal: Below low normal; Units: k/mm3; Status: F Lab Order: COMPLETE COMPHRENSIVE METABOLI; SPEC'M 08/17/16 12:01 Test: GLUCOSE, FASTING; Value: 158; Range: 83-110; Abnormal: Above high normal; Units: MG/DL; Status: F Test: BLOOD UREA NITROGEN; Value: 12; Range: 7-18; Units: MG/DL; Status: F Test: CREATININE FOR GFR; Value: 0.79; Range: 0.55-1.02; Units: MG/DL; Status: F Test: GLOMERULAR FILTRATION RATE; Value: > 60.0; Range: >39; Status: F Test: SODIUM LEVEL; Value: 144; Range: 136-145; Units: MEQ/L; Status: F Test: POTASSIUM SERUM; Value: 3.4; Range: 3.5-5.1; Abnormal: Below low normal; Units: MEQ/L; Status: F Test: CHLORIDE LEVEL; Value: 108; Range: 98-107; Abnormal: Above high normal; Units: MEQ/L; Status: F Test: CARBON DIOXIDE LEVEL; Value: 24; Range: 21-32; Units: MEQ/L; Status: F Test: ANION GAP; Value: 12; Range: 8-16; Units: MEQ/L; Status: F Test: CALCIUM LEVEL; Value: 7.9; Range: 8.8-10.2; Abnormal: Below low normal; Units: MG/DL; Status: F Test: AST/SGOT; Value: 37; Range: 15-37; Units: U/L; Status: F Test: ALT/SGPT; Value: 28; Range: 12-78; Units: U/L; Status: F Test: ALKALINE PHOSPHATASE; Value: 146; Range: 45-117; Abnormal: Above high normal; Units: U/L; Status: F Test: BILIRUBIN,TOTAL; Value: 2.8; Range: 0.2-1.0; Abnormal: Above high normal; Units: MG/DL; Status: F Test: TOTAL PROTEIN; Value: 6.7; Range: 6.4-8.2; Units: GM/DL; Status: F Test: ALBUMIN; Value: 2.8; Range: 3.2-5.2; Abnormal: Below low normal; Units: GM/DL; Status: F Test: ALBUMIN/GLOBULIN RATIO; Value: 0.72; Range: 1.00-1.93; Abnormal: Below low normal; Status: F Test Note: ; Units are mL/min/1.73 m2 Chronic Kidney Disease Staging per NKF: Stage I & II GFR >=60 Normal to Mildly Decreased Stage III GFR 30-59 Moderately Decreased Stage IV GFR 15-29 Severely Decreased Stage V GFR <15 Very Little GFR Left ESRD GFR <15 on REGRADER Lab Order: TROPONIN; SPEC' 08/17/16 12:01 Test: TROPONIN I; Value: 0.02; Range: < 0.10; Units: NG/ML; Status: F Test Note: ; Troponin I Reference Interval for [employer] LOCI: 99th Percentile= 0.00-0.045 ng/ml Risk Stratification: <= 0.10 ng/ml Decreased Risk for Adverse Clinical Events. 0.10-1.50 ng/ml Increased Risk for Adverse Clinical Events. Evaluation of additional criterion and/or repeat testing in 2-6 hours is suggested to rule out myocardial damage. >= 1.50 ng/ml Indicative of Myocardial Injury. Lab Order: AMMONIA; SPEC' 08/17/16 12:01 Test: AMMONIA; Value: 79; Range: <32; Abnormal: Above high normal; Units: uMOL/L; Status: F Lab Order: PROTHROMBIN TIME PROFILE\E\INR; SPEC' 08/17/16 12:01 Test: PROTHROMBIN TIME; Value: 19.0; Range: 12.3-14.5; Abnormal: Above high normal; Units: SECONDS; Status: F Test: INR; Value: 1.58; Status: F Test Note: ; THERAPUTIC HUMAN INR VALUES INDICATIONS NORMAL RANGES PROPHYLAXIS/TREATMENT OF: VENOUS THROMBOSIS 2.0-3.0 PULMONARY EMBOLISM 2.0-3.0 PREVENTION OF SYSTEMIC EMBOLISM FROM: TISSUE HEART VALVES 2.0-3.0 ACUTE MYOCARDIAL INFARCTION 2.0-3.0 VALVULAR HEART DISEASE 2.0-3.0 ATRIAL FIBRILLATION 2.0-3.0 MECHANICAL VALVES(HIGH RISK) 2.5-3.5 RECURRENT MYOCARDIAL INFARCTION 2.5-3.5 Lab Order: Fingerstick Blood Sugar; SPEC'M 08/17/16 12:32 Test: BEDSIDE GLUCOSE; Value: 161; Range: 83-110; Abnormal: Above high normal; Units: MG/DL; Status: F Outcome: 10:48 Decision to Hospitalize by Provider. sd1 13:40 Admission hand-off: Report called to ruth ann barton. terrell 14:07 Discharge Assessment: Patient awake, alert and oriented x 3. No cognitive and/or k functional deficits noted. Patient verbalized understanding of disposition instructions. patient administered narcotics - no. The following High Risk Discharge criteria are identified: None. Admitted to PCU accompanied by nurse, via stretcher, on monitor, with chart. Condition: good. No special radiology studies were completed. Property :Personal belongings accompany Pt. 14:18 Patient left the ED. terrell Signatures: Dispatcher [employer] EDRachelle Pierson MD MD sd1 Diane Gardiner, Systems Program Manager Unit deg Jonas Tomas,RN RN Milagros Tran, Reg Reg gb Anant Christopher, Reg Reg lg Clare Villa RN RN jc4 Baart, Nicole nb2 Chart Complete MTDD
[2016-08-19] MEDS: cefTRIAXone SOD 1 GM in D5W MINI-BAG PLUS 50 ML IV SCH (15:34)
--- NOTE | 2016-08-19 16:44 | ECGEPIP ---
Stationary ECG Study [facility] Test Date: 2016-08-19 Pat Name: ARTIE GUERRIER Department: Room: [place] [address] Gender: F [employer]: : 1940 Requested By: RO ROMERO Order Number: [id number] Reading MD: Cruz Padilla Measurements Intervals [place] Rate: 92 P: 67 [place]: 136 QRS: 6 QRSD: 95 T: 58 QT: 388 QTc: 482 Interpretive Statements SINUS RHYTHM Low limb lead voltages. No prior ECG available for comparison at the time of interpretation. Electronically Signed On 08-19-2016 16:43:54 EST by Cruz Padilla
[2016-08-19] MEDS: PRAVASTATIN 20 MG TAB PO SCH (20:25)
[2016-08-19] MEDS: IBUPROFEN 200 MG TAB PO PRN (20:28)
[2016-08-19 22:00] VITALS: BP 143/77
[2016-08-20] MEDS: LACTULOSE 20 GM/30 ML SYRUP UD PO SCH ×5 (05:25→23:51)
[2016-08-20 06:00] VITALS: BP 139/73
[2016-08-20 06:38] LABS: RED CELL DISTRIBUTION WIDTH 16.3 % (11.5-14.5); WHITE BLOOD COUNT 3.8 K/mm3 (4.0-10.0)
[2016-08-20 06:44] LABS: ANION GAP 11 MEQ/L (8-16); BLOOD UREA NITROGEN 14 MG/DL (7-18); CALCIUM LEVEL 7.5 MG/DL (8.8-10.2); CARBON DIOXIDE LEVEL 25 MEQ/L (21-32); CHLORIDE LEVEL 107 MEQ/L (98-107); CREATININE FOR GFR 0.61 MG/DL (0.55-1.02); GLOMERULAR FILTRATION RATE > 60.0 (>39); GLUCOSE, FASTING 166 MG/DL (83-110); POTASSIUM SERUM 3.3 MEQ/L (3.5-5.1); SODIUM LEVEL 143 MEQ/L (136-145)
[2016-08-20] MEDS ORDERED: ISOVUE-370 76% 100ML VIAL (Q9967) As Ordered ONE (08:08)
[2016-08-20] MEDS: HumaLOG INSULIN (NovoLOG) PER UNIT SC SCH ×4 (09:38→21:00)
--- NOTE | 2016-08-20 11:22 | REP ---
CT STUDY OF THE ABDOMEN AND PELVIS WITH IV BUT WITHOUT ORAL CONTRAST: HISTORY: Urinary tract infection, persistent fevers, rule out stone or abscess. Comparison CT study is from July 30, 2008. CT contrast dose: 100 mL of Isovue [address] FINDINGS: Digital preliminary chief i dispatcher radiograph shows an unremarkable bowel gas pattern. The spleen is quite enlarged measuring 19.7 cm in greatest craniocaudal length. No focal splenic lesion is seen. The splenomegaly is new when compared with the 2007 prior study. It is however unchanged from the more recent [facility] prior CT study dated October 23, 2015. There is a micronodular contour to the liver which may reflect early cirrhosis. No focal liver mass lesion is seen. There are small bilateral pleural effusions visible today. This is new on the right and increased on the left compared to the October 2015 study. There is a 1.3 cm cyst in the upper pole of the left kidney. This is a little larger than on the October 2015 prior study. There is a cyst in the upper pole of the right kidney which measures 1.5 cm. This is unchanged from October 2015. The kidneys enhance symmetrically. There is an intrarenal calculus 4 mm in diameter in the lower pole of the right kidney. No right-sided hydronephrosis is seen. On the left however there is mild hydronephrosis due to a 4 mm calculus at the right ureteropelvic junction. There is mild contrast enhancement in the wall of the renal pelvis on the left. There is no visible abscess. There is pancolonic diverticulosis without CT evidence of diverticulitis. Some prominent venous collaterals are seen in the left mid abdomen again consistent with portal venous hypertension. No bony destructive lesion. No evidence of free intraperitoneal air. IMPRESSION: 1. Obstructive 4 mm calculus in the left ureteropelvic junction with a mild left-sided hydronephrosis. 2. No abscess. 3. Small bilateral pleural effusions. 4. Moderate to marked splenomegaly. 5. Evidence of cirrhosis with portal venous collaterals in the upper abdomen. 6. Pancolonic diverticulosis. Signed by Zachary Hong MD 08/20/2016 12:07 P
[2016-08-20] MEDS ORDERED: POTASSIUM CHLORIDE 10 MEQ SR TABLET PO ONE (13:15)
--- NOTE | 2016-08-20 13:55 | IPNPDOC ---
Date of Service/Time 08/20/16 Progress Note SUBJECTIVE: The patient denies any complaints at this time the patient is well walking around her room she is awake alert oriented she knows the year months day and where she is. OBJECTIVE: PHYSICAL EXAMINATION: VITAL SIGNS: MAXIMUM TEMPERATURE 101.6 otherwise Please see below. GENERAL: Pleasant elderly female sitting up in bed she is in no distress whatsoever HEENT:. Pupils are equally round and reactive to light she has moist mucous membranes CARDIOVASCULAR: S1-S2 regular. RESPIRATORY:. Auscultation. ABDOMINAL: Benign EXTREMITIES: No clubbing cyanosis or edema LABORATORY DATA: Mild hypokalemia MICROBIOLOGY: Urine Culture from [facility] reveals Klebsiella pneumoniae resistant only to ampicillin but otherwise pansensitive IMAGING: No new imaging DVT prophylaxis ordered?: Sequentials and teds no pharmacological agents secondary to thrombocytopenia ASSESSMENT AND PLAN: This is a 76-year-old female with dementia and cirrhosis presenting with delirium likely acute on chronic encephalopathy secondary to urinary tract infection. Problem #1 sepsis secondary to urinary source: The patient was febrile and tachycardic with likely urinary source will continue on IV ceftriaxone as her infection did appear to be resolving with a downtrending fever curve however yesterday evening she did spike a rather high temperature this is somewhat unexpected given that this is day 3 of appropriate antibiotics. I will check a CT of the abdomen and pelvis to exclude any potential stone or abscess may be a potential focus of infection not being addressed Problem #2 encephalopathy: Patient has an element of dementia and is a [facility] resident. At presentation she also may have had some hepatic encephalopathy secondary to medication nonadherence with her lactulose at her [facility]. although her ammonia level remains elevated she does not appear to be lethargic she has no asterixis on her examination I do not feel that this is playing a role in her presentation at this time and that she is more likely having acute on chronic encephalopathy was secondary to the urinary tract infection. But she does appear to be improving daily Problem #3 lactic acidosis: Likely secondary to metformin use, sepsis syndrome did not compromise her blood pressure at any point although we do have her on IV fluids and lactic acid is trending down with only holding her metformin. We' ll continue to hold metformin upon discharge consider transitioning patient on additional oral agent versus insulin Problem #4 liver cirrhosis: The patient does not know why she has cirrhosis but believes is secondary to hepatitis C she follows with [facility] regarding this for the time being we are holding her home Lasix. The patient does have an elevated INR as well as some mild thrombocytopenia likely related to her cirrhosis. Problem #5 hypertension the patient had an elevated lactic acid and presented with sepsis syndrome and as such her Norvasc 5 g as well as atenolol 50 mg and lisinopril 20 mg and her Lasix 20 mg which all been held. Should she become hypertensive would restart her Norvasc and atenolol first. At this time she does not require Problem #6 dyslipidemia continue with pravastatin. Problem #7 vitamin D deficiency: Continue his muscle supplementation DISPOSITION: We will follow-up the results of her CT abdomen and pelvis this afternoon VS, I&O, 24H, Fishbone VS, I&O, 24H, Fishbone Vital Signs Date Time Temp Pulse Resp B/P Pulse Ox O2 Delivery O2 Flow Rate FiO2 08/20/16 06:00 97.8 79 18 139/73 94 Room Air I&O- Last 24 Hours up to 6 AM 08/20/16 06:00 Intake Total 1210 ml Output Total 500 ml Balance 710 ml Laboratory Tests 2 08/19/16 17:23: Bedside Glucose (Misc Panel) 159H 08/19/16 19:47: Bedside Glucose (Misc Panel) 200H 08/20/16 06:23: Anion Gap 11, Blood Urea Nitrogen 14, Creatinine 0.61, Sodium Level 143, Potassium Level 3.3L, Chloride Level 107, Carbon Dioxide Level 25, Calcium Level 7.5L, Glomerular Filtration Rate > 60.0 08/20/16 12:20: Bedside Glucose (Misc Panel) 210H Laboratory Tests 08/20/16 06:23 Calcium Level 7.5 L, Red Blood Count 3.40 L, Mean Corpuscular Volume 100.0 H, Mean Corpuscular Hemoglobin 33.0, Mean Corpuscular Hemoglobin Concent 33.0, Red Cell Distribution Width 16.3 H Microbiology 08/17/16 Blood Culture - Preliminary, Resulted No Growth after 72 hours. All specime... 08/17/16 Blood Culture - Preliminary, Resulted No Growth after 72 hours. All specime... 08/18/16 Urine Culture - Final, Complete RO ROMERO MD Aug 20, 2016 13:55
[2016-08-20] MEDS: cefTRIAXone SOD 1 GM in D5W MINI-BAG PLUS 50 ML IV SCH (15:15)
--- NOTE | 2016-08-20 17:33 | SMCUROLCON ---
Urology Consultation General Date of Consultation 08/20/16 Reason For Consultation Kidney Stones History of Present Illness This is a 76 y/o F w/ a PMH significant for DM2 and cirrhosis, admitted to the hospital a few days ago for fatigue and confusion. She was diagnosed w/ a Klebsiella UTI based on urine culture done at [facility] prior to transfer here. She has since been kept on culture specific IV antibiotics and despite this she has spiked fevers on and off almost every evening, most recently last night. Because of this a CT A/P was performed by the primary team and was notable for an obstructing 4mm proximal left ureteral stone w/ mild perinephric stranding, as well as a nonobstructing right renal stone. The patient notes that she feels well today and per nursing she seems more alert and oriented today. The patient denies ever having left flank or abdominal pain. She has no voiding complaints. She has no prior history of kidney stones. Past Medical History Medical History see HPI Surgical Hstory hysterectomy Medications Current Medications Current Medications Ceftriaxone Sodium/Dextrose (Rocephin/ Dextrose 5% Mini-Bag Plus) 50 ml @ 100 mls/hr Q24H IV Last administered on 08/20/16at 15:15; Start 08/17/16 at 15:00 ; Stop 08/24/16 at 14:59 Dextrose (Dextrose 50%) 25 ml ASDIRECTED PRN IV SEE LABEL COMMENTS; Start at 11:45; Stop 09/16/16 at 11:44 Glucagon (Glucagon) 1 mg ASDIRECTED PRN SC SEE LABEL COMMENTS; Start 08/17/16 at 11:45; Stop 09/16/16 at 11:44 Glucose (Glucose) 16 GM ASDIRECTED PRN PO SEE LABEL COMMENTS; Start 08/17/16 at 11:45; Stop 09/16/16 at 11:44 Home Med (Med Rec Complete!) ASDIRECTED XX ; Start 08/17/16 at 12:00; Stop at 12:06; Status DC Ibuprofen (Advil) 200 mg Q6HP PRN PO PAIN Last administered on 08/19/16at 20:28 ; Start 08/17/16 at 12:30; Stop 09/16/16 at 12:29 Ibuprofen 200 mg 200 mg STK-MED ONCE As Ordered ; Start 08/17/16 at 13:15; Stop 08/17/16 at 13:16; Status DC Insulin Human Lispro (HumaLOG INSULIN) See Protocol Table AC SC Last administered on 08/20/16at 12:40; Start 08/17/16 at 12:00; Stop 09/16/16 at 11: 59 Insulin Human Lispro (HumaLOG INSULIN) See Protocol Table QHS SC ; Start at 21:00; Stop 09/16/16 at 20:59 Iopamidol (Isovue-370 76%) 100 ml STK-MED ONCE As Ordered ; Start 08/20/16 at 08:08; Stop 08/20/16 at 08:09; Status DC Lactulose (Cephulac) 15 ml Q6H PO Last administered on 08/20/16at 12:39; Start 08/17/16 at 12:00; Stop 09/16/16 at 11:59 Magnesium Sulfate/ Dextrose/IV Miscellaneous Supplies (Mag Sulf 1gm/ 100ml (Mag Run)) 100 ml @ 100 mls/hr ONCE ONCE IV Last administered on 08/19/16at 10:51 ; Start 08/19/16 at 11:00; Stop 08/19/16 at 11:59; Status DC Ondansetron HCl (Zofran) 4 mg STK-MED ONCE As Ordered ; Start 08/17/16 at 12:25 ; Stop 08/17/16 at 12:26; Status DC Ondansetron HCl 4 mg 4 mg Q6HP PRN IV NAUSEA OR VOMITING; Start 08/17/16 at 11 :45; Stop 09/16/16 at 11:44 Potassium Chloride (Micro-K Extencaps) 40 meq ONCE ONCE PO Last administered on 08/20/16at 13:23; Start 08/20/16 at 13:15; Stop 08/20/16 at 13:17; Status DC Pravastatin Sodium (Pravachol) 20 mg QHS PO Last administered on 08/19/16at 20: 25; Start 08/17/16 at 21:00; Stop 09/16/16 at 20:59 Sertraline HCl (Zoloft) 25 mg DAILY PO ; Start 08/18/16 at 09:00; Stop at 09:00; Status DC Sodium Chloride (Nacl 0.9%) 1,000 ml @ 50 mls/hr Q20H IV Last administered on 08/19/16at 04:16; Start 08/17/16 at 11:37; Stop 08/19/16 at 06:39; Status DC Vitamin D (Vitamin D) 1,000 units DAILY PO ; Start 08/18/16 at 09:00; Stop at 09:00; Status DC Allergies Allergies: Coded Allergies: Moxifloxacin (Unverified Allergy, Unknown, 08/17/16) Penicillins (Verified Allergy, Unknown, 12/27/13) Sulfa Antibiotics (Verified Allergy, Unknown, 12/27/13) Acetaminophen (Unverified Adverse Reaction, Unknown, "AFECTS LIVER FUNCTION", 08/17/16) Review of Systems Constitutional: Reports: Fever Pulmonary: Denies: Dyspnea, Pleuritic Chest Pain Cardiovascular: Denies Chest Pain, Denies Palpitations, Reports Edema Gastrointestinal: Denies: Abdominal Pain, Nausea, Vomiting Genitourinary: Denies: Dysuria, Hematuria Musculoskeletal: Denies: Back Pain Neurological: Denies: Change in Speech, Numbness Psych: Reports: Mood Normal Physical Examination General Exam: : Alert: Cooperative: No Acute Distress ENT EXAM: : Atraumatic Chest Exam: : Clear to auscultation Heart Exam: : Rate Normal: Regular Rhythm Abdomen Exam: : BS Hypoactive: Mass: SoftNo: Tenderness Skin Exam: : Nl turgor and temperature Neuro Exam: : Normal Speech Psych Exam: : Mental status NL: Mood NL Vital Signs/I&O Vital Signs Date Time Temp Pulse Resp B/P Pulse Ox O2 Delivery O2 Flow Rate FiO2 08/20/16 06:00 97.8 79 18 139/73 94 Room Air I&O- Last 24 Hours up to 6 AM 08/20/16 06:00 Intake Total 1210 ml Output Total 500 ml Balance 710 ml Laboratory Data 24H Labs Laboratory Tests 2 08/19/16 17:23: Bedside Glucose (Misc Panel) 159H 08/19/16 19:47: Bedside Glucose (Misc Panel) 200H 08/20/16 06:23: Anion Gap 11, Blood Urea Nitrogen 14, Creatinine 0.61, Sodium Level 143, Potassium Level 3.3L, Chloride Level 107, Carbon Dioxide Level 25, Calcium Level 7.5L, Glomerular Filtration Rate > 60.0 12/29/16 12:20: Bedside Glucose (Misc Panel) 210H 08/20/16 16:54: Bedside Glucose (Misc Panel) 180H CBC/BMP Laboratory Tests 08/20/16 06:23 Calcium Level 7.5 L, Red Blood Count 3.40 L, Mean Corpuscular Volume 100.0 H, Mean Corpuscular Hemoglobin 33.0, Mean Corpuscular Hemoglobin Concent 33.0, Red Cell Distribution Width 16.3 H FSBS Laboratory Tests Test 08/19/16 17:23 08/19/16 19:47 08/20/16 12:20 08/20/16 16:54 Range/Units Bedside Glucose (Misc Panel) 159 200 210 180 83-110 MG/DL Microbiology Microbiology 08/17/16 Blood Culture - Preliminary, Resulted No Growth after 72 hours. All specime... 08/17/16 Blood Culture - Preliminary, Resulted No Growth after 72 hours. All specime... 08/18/16 Urine Culture - Final, Complete Assessment This is a 76 y/o F admitted w/ confusion and weakness, likely due to a Klebsiella UTI, and now also found to have an obstructing left ureteral stone. She appears asymptomatic from the stone but given the obstructing stone and the UTI, I think it would be safest to place a left ureteral stent to decompress the kidney and keep her on antibiotics for now. This was explained to the patient as well as the subsequent need to bring her back later on to remove the stone once she has been on antibiotics for a few weeks and she has recovered from this recent illness. Plan - informed consent signed for cystoscopy, left ureteral stent placement - continue antibiotics per primary team - NPO at midnight - plan for OR tomorrow morning VERNA MC MD Aug 20, 2016 17:33
[2016-08-20] MEDS: PRAVASTATIN 20 MG TAB PO SCH (21:30)
[2016-08-20 22:00] VITALS: BP 143/82
[2016-08-21] VITALS (8 sets, daily range): BP systolic 141–150; BP diastolic 72–83
[2016-08-21] MEDS: LACTULOSE 20 GM/30 ML SYRUP UD PO SCH ×4 (05:36→23:38)
[2016-08-21 06:52] LABS: MEAN CORPUSCULAR HEMOGLOBIN 33.7 pg (27.0-33.0); MEAN CORPUSCULAR HGB CONC 32.4 g/dl (32.0-36.5); MEAN CORPUSCULAR VOLUME 104.1 fl (80.0-96.0); RED CELL DISTRIBUTION WIDTH 17.4 % (11.5-14.5); WHITE BLOOD COUNT 3.6 K/mm3 (4.0-10.0)
[2016-08-21] MEDS: HumaLOG INSULIN (NovoLOG) PER UNIT SC SCH ×4 (07:08→20:17)
[2016-08-21 07:13] LABS: ANION GAP 9 MEQ/L (8-16); BLOOD UREA NITROGEN 12 MG/DL (7-18); CALCIUM LEVEL 7.8 MG/DL (8.8-10.2); CARBON DIOXIDE LEVEL 26 MEQ/L (21-32); CHLORIDE LEVEL 108 MEQ/L (98-107); CREATININE FOR GFR 0.63 MG/DL (0.55-1.02); GLOMERULAR FILTRATION RATE > 60.0 (>39); GLUCOSE, FASTING 182 MG/DL (83-110); POTASSIUM SERUM 3.7 MEQ/L (3.5-5.1); SODIUM LEVEL 143 MEQ/L (136-145)
[2016-08-21] MEDS ORDERED: MIDAZOLAM INJ 2 MG/2 ML VIAL (J2250) As Ordered ONE (07:13)
[2016-08-21] MEDS ORDERED: fentaNYL 100 MCG/2 ML INJECTION (J3010) As Ordered ONE (07:14)
[2016-08-21] MEDS ORDERED: LIDOCAINE 2% INJ 100 MG/5 ML SDV (FOR ANES.) As Ordered ONE (07:15)
[2016-08-21] MEDS ORDERED: PROPOFOL 200 MG/20 ML VIAL As Ordered ONE (07:16)
[2016-08-21] MEDS ORDERED: CONRAY-60 60% 50ML VIAL (Q9961) As Ordered ONE (07:42)
[2016-08-21] MEDS ORDERED: LIDOCAINE 2% 5ML JELLY UROJET As Ordered ONE (07:45)
--- NOTE | 2016-08-21 08:39 | REP ---
Retrograde pyelogram: Three views intraoperative: History: Ureteral stone. 24 seconds of fluoroscopy time is reported. Findings: A sequence of three fluoroscopically obtained intraprocedural spot radiographs of the abdomen document left ureteral guidewire cannulation, contrast injection, and double pigtail stent placement. Signed by Zachary Hong MD 08/21/2016 09:16 A
--- NOTE | 2016-08-21 12:51 | IPNPDOC ---
Date of Service/Time 08/21/16 Progress Note SUBJECTIVE: The patient feels well and has no complaints OBJECTIVE: PHYSICAL EXAMINATION: VITAL SIGNS: MAXIMUM TEMPERATURE afebrile Please see below. GENERAL: Pleasant elderly female lying flat in bed she is in no distress whatsoever HEENT:. Pupils are equally round and reactive to light she has moist mucous membranes CARDIOVASCULAR: S1-S2 regular. RESPIRATORY:. Auscultation. ABDOMINAL: Benign no CVA or suprapubic tenderness EXTREMITIES: No clubbing cyanosis or edema LABORATORY DATA: Pancytopenia otherwise please see below MICROBIOLOGY: Urine Culture from [facility] reveals Klebsiella pneumoniae resistant only to ampicillin but otherwise pansensitive IMAGING: CT of the abdomen and pelvis revealed obstructive 4 mm calculus in the left ureter pelvic junction with mild left-sided hydronephrosis as well as evidence of cirrhosis with portal venous collaterals in the upper abdomen and colonic diverticulosis DVT prophylaxis ordered?: Sequentials and teds no pharmacological agents secondary to thrombocytopenia ASSESSMENT AND PLAN: This is a 76-year-old female with dementia and cirrhosis presenting with delirium likely acute on chronic encephalopathy secondary to urinary tract infection. Problem #1 sepsis secondary to urinary source: The patient was febrile and tachycardic with likely urinary source the patient remained febrile despite appropriate antibiotic therapy and as such a CT scan of the abdomen and pelvis was checked as mentioned above it revealed an obstructive 4 mm stone with left- sided hydronephrosis Dr. Campos see the patient in consultation and is taken to the operating room this morning and placed a left-sided stent. Dr. Campos' s office will call patient family members for follow-up after she has completed a course of antibiotics. This is likely etiology for sepsis syndrome Problem #2 encephalopathy: Patient has an element of dementia and is a [facility] resident. At presentation she also may have had some hepatic encephalopathy secondary to medication nonadherence with her lactulose at her [facility]. At the present time she does not appear to be lethargic she has no asterixis on her examination I do not feel that this is playing a role in her current baseline confusion. Problem #3 lactic acidosis: Likely secondary to metformin use, sepsis syndrome did not compromise her blood pressure at any point although we do have her on IV fluids and lactic acid is trending down with only holding her metformin. We' ll continue to hold metformin upon discharge consider transitioning patient on additional oral agent versus insulin Problem #4 liver cirrhosis: The patient does not know why she has cirrhosis but believes is secondary to hepatitis C she follows with [facility] regarding this for the time being we are holding her home Lasix. The patient does have an elevated INR as well as some mild thrombocytopenia likely related to her cirrhosis. Problem #5 hypertension the patient had an elevated lactic acid and presented with sepsis syndrome and as such her Norvasc 5 g, atenolol 50 mg, lisinopril 20 mg and Lasix 20 mg which have all been held surprisingly she does not appear to be hypertensive during her stay. Should she become hypertensive would restart her Norvasc and atenolol first. Problem #6 dyslipidemia continue with pravastatin. Problem #7 vitamin D deficiency: Continue his muscle supplementation DISPOSITION: Provided the patient continues to improve I suspect maybe overturned her [facility] as early as Wednesday VS, I&O, 24H, Fishbone VS, I&O, 24H, Fishbone Vital Signs Date Time Temp Pulse Resp B/P Pulse Ox O2 Delivery O2 Flow Rate FiO2 08/21/16 06:00 98.7 90 15 141/72 97 Room Air I&O- Last 24 Hours up to 6 AM 08/21/16 06:00 Intake Total 580 ml Output Total 450 ml Balance 130 ml Laboratory Tests 2 08/20/16 16:54: Bedside Glucose (Misc Panel) 180H 08/20/16 21:24: Bedside Glucose (Misc Panel) 168H 08/21/16 06:22: Bedside Glucose (Misc Panel) 154H 08/21/16 06:30: Anion Gap 9, Blood Urea Nitrogen 12, Creatinine 0.63, Sodium Level 143, Potassium Level 3.7, Chloride Level 108H, Carbon Dioxide Level 26, Calcium Level 7.8L, Glomerular Filtration Rate > 60.0 08/21/16 11:54: Bedside Glucose (Misc Panel) 276H Laboratory Tests 08/21/16 06:30 Calcium Level 7.8 L, Red Blood Count 3.33 L, Mean Corpuscular Volume 104.1 H, Mean Corpuscular Hemoglobin 33.7 H, Mean Corpuscular Hemoglobin Concent 32.4, Red Cell Distribution Width 17.4 H Microbiology 08/17/16 Blood Culture - Preliminary, Resulted No Growth after 72 hours. All specime... 08/17/16 Blood Culture - Preliminary, Resulted No Growth after 72 hours. All specime... 08/18/16 Urine Culture - Final, Complete RO ROMERO MD Aug 21, 2016 12:51
[2016-08-21] MEDS: cefTRIAXone SOD 1 GM in D5W MINI-BAG PLUS 50 ML IV SCH (15:53)
[2016-08-21] MEDS: PRAVASTATIN 20 MG TAB PO SCH (20:12)
[2016-08-22] MEDS: LACTULOSE 20 GM/30 ML SYRUP UD PO SCH ×4 (05:16→23:51)
[2016-08-22 05:42] LABS: MEAN CORPUSCULAR HEMOGLOBIN 32.6 pg (27.0-33.0); MEAN CORPUSCULAR HGB CONC 32.2 g/dl (32.0-36.5); RED CELL DISTRIBUTION WIDTH 17.1 % (11.5-14.5); WHITE BLOOD COUNT 3.4 K/mm3 (4.0-10.0)
[2016-08-22 05:52] LABS: ANION GAP 9 MEQ/L (8-16); BLOOD UREA NITROGEN 8 MG/DL (7-18); CALCIUM LEVEL 7.7 MG/DL (8.8-10.2); CARBON DIOXIDE LEVEL 29 MEQ/L (21-32); CHLORIDE LEVEL 105 MEQ/L (98-107); CREATININE FOR GFR 0.62 MG/DL (0.55-1.02); GLOMERULAR FILTRATION RATE > 60.0 (>39); GLUCOSE, FASTING 176 MG/DL (83-110); POTASSIUM SERUM 3.5 MEQ/L (3.5-5.1); SODIUM LEVEL 143 MEQ/L (136-145)
[2016-08-22 06:00] VITALS: BP 137/76
[2016-08-22] MEDS: HumaLOG INSULIN (NovoLOG) PER UNIT SC SCH ×4 (08:11→20:47)
--- NOTE | 2016-08-22 11:14 | IPNPDOC ---
Date of Service The patient was seen on 08/22/16. Patient Summary This is a 76 y/o F admitted w/ confusion and weakness, likely due to a Klebsiella UTI, and then also found to have an obstructing left ureteral stone, now POD1 s/p cystoscopy w/ left ureteral stent placement. Given the fact that she has had no pain, there was concern that she had passed the stone, but based on the severe hydronephrosis seen on left retrograde pyelogram yesterday, the stone has not passed. She is doing well, and I explained that she will need to finish up a course of oral antibiotics on discharge from the hospital. My office will arrange follow up w/ her to come in to discuss treatment for her stone once she has completed a course of antibiotics. Plan/VTE VTE Prophylaxis Ordered?: Yes VTE Exclusion Mechanical Proph: N/A:VTE Prophy Ordered Plan - ok for discharge from my standpoint on oral antibiotics for a week - my office will contact the patient's family to arrange f/u w/ her in my office Review oF Systems CC/HPI The patient is a 76-year-old female admitted with a reason for visit of Metabolic Encephalopathy. Events since Last Encounter No acute events o/n. Denies abdominal or flank pain. Denies any changes in voiding after the left ureteral stent was placed. Denies fevers or chills. Physical Examination General Exam: : Alert: Cooperative ENT EXAM: : Atraumatic ABDOMEN EXAM: : SoftNo: Tenderness Other physical findings no CVA tenderness Vital Signs/I&O Vital Signs Date Time Temp Pulse Resp B/P Pulse Ox O2 Delivery O2 Flow Rate FiO2 08/22/16 06:00 98.1 90 18 137/76 95 Room Air I&O- Last 24 Hours up to 6 AM 08/22/16 06:00 Intake Total 1920 ml Output Total 1750 ml Balance 170 ml Laboratory Data Labs 24H Laboratory Tests 2 08/21/16 11:54: Bedside Glucose (Misc Panel) 276H 08/21/16 16:35: Bedside Glucose (Misc Panel) 197H 08/21/16 20:10: Bedside Glucose (Misc Panel) 212H 08/22/16 05:17: Anion Gap 9, Blood Urea Nitrogen 8, Creatinine 0.62, Sodium Level 143, Potassium Level 3.5, Chloride Level 105, Carbon Dioxide Level 29, Calcium Level 7.7L, Glomerular Filtration Rate > 60.0 CBC/BMP Laboratory Tests 08/22/16 05:17 Calcium Level 7.7 L, Red Blood Count 3.12 L, Mean Corpuscular Volume 101.0 H, Mean Corpuscular Hemoglobin 32.6, Mean Corpuscular Hemoglobin Concent 32.2, Red Cell Distribution Width 17.1 H FSBS Laboratory Tests Test 08/21/16 11:54 08/21/16 16:35 08/21/16 20:10 Range/Units Bedside Glucose (Misc Panel) 276 197 212 83-110 MG/DL Microbiology Microbiology 08/17/16 Blood Culture - Preliminary, Resulted No Growth after 72 hours. All specime... 08/17/16 Blood Culture - Preliminary, Resulted No Growth after 72 hours. All specime... 08/18/16 Urine Culture - Final, Complete VERNA MC MD Aug 22, 2016 11:13
--- NOTE | 2016-08-22 11:34 | IPNPDOC ---
Date of Service/Time 08/22/16 Progress Note SUBJECTIVE: The patient feels well OBJECTIVE: PHYSICAL EXAMINATION: VITAL SIGNS: MAXIMUM TEMPERATURE afebrile Please see below. GENERAL: Pleasant elderly female lying flat in bed she is in no distress whatsoever HEENT:. Pupils are equally round and reactive to light she has moist mucous membranes CARDIOVASCULAR: S1-S2 regular. RESPIRATORY:. Auscultation. ABDOMINAL: no CVA or suprapubic tenderness EXTREMITIES: No clubbing cyanosis or edema LABORATORY DATA: Pancytopenia otherwise please see below MICROBIOLOGY: Urine Culture from [facility] reveals Klebsiella pneumoniae resistant only to ampicillin but otherwise pansensitive IMAGING: CT of the abdomen and pelvis revealed obstructive 4 mm calculus in the left ureter pelvic junction with mild left-sided hydronephrosis as well as evidence of cirrhosis with portal venous collaterals in the upper abdomen and colonic diverticulosis DVT prophylaxis ordered?: Sequentials and teds no pharmacological agents secondary to thrombocytopenia ASSESSMENT AND PLAN: This is a 76-year-old female with dementia and cirrhosis presenting with delirium likely acute on chronic encephalopathy secondary to urinary tract infection. Problem #1 sepsis secondary to urinary source: The patient was febrile and tachycardic with likely urinary source the patient remained febrile despite appropriate antibiotic therapy and as such a CT scan of the abdomen and pelvis was checked as mentioned above it revealed an obstructive 4 mm stone with left- sided hydronephrosis. Dr. Campos was able to place a stent on the left she is postop day one and doing quite well she will require 7 days of antibiotics we' ll keep her on IV now until we can disposition back to her longterm Problem #2 encephalopathy: Patient has an element of dementia and is a longterm resident. At presentation she also may have had some hepatic encephalopathy secondary to medication nonadherence with her lactulose at her longterm. At the present time she does not appear to be lethargic she has no asterixis on her examination I do not feel that this is playing a role in her current baseline confusion. Problem #3 lactic acidosis: Likely secondary to metformin use, sepsis syndrome did not compromise her blood pressure at any point although we do have her on IV fluids and lactic acid is trending down with only holding her metformin. We' ll continue to hold metformin upon discharge consider transitioning patient on additional oral agent versus insulin Problem #4 liver cirrhosis: The patient does not know why she has cirrhosis but believes is secondary to hepatitis C she follows with [facility] regarding this for the time being we are holding her home Lasix. The patient does have an elevated INR as well as some mild thrombocytopenia likely related to her cirrhosis. Problem #5 hypertension the patient had an elevated lactic acid and presented with sepsis syndrome and as such her Norvasc 5 g, atenolol 50 mg, lisinopril 20 mg and Lasix 20 mg which have all been held surprisingly she does not appear to be hypertensive during her stay. Should she become hypertensive would restart her Norvasc and atenolol first. Problem #6 dyslipidemia continue with pravastatin. Problem #7 vitamin D deficiency: Continue his muscle supplementation DISPOSITION: We'll plan to get the patient back to her longterm by Wednesday VS, I&O, 24H, Fishbone VS, I&O, 24H, Fishbone Vital Signs Date Time Temp Pulse Resp B/P Pulse Ox O2 Delivery O2 Flow Rate FiO2 08/22/16 06:00 98.1 90 18 137/76 95 Room Air I&O- Last 24 Hours up to 6 AM 08/22/16 05:59 Intake Total 1560 ml Output Total 1550 ml Balance 10 ml Laboratory Tests 2 08/21/16 11:54: Bedside Glucose (Misc Panel) 276H 08/21/16 16:35: Bedside Glucose (Misc Panel) 197H 08/21/16 20:10: Bedside Glucose (Misc Panel) 212H 08/22/16 05:17: Anion Gap 9, Blood Urea Nitrogen 8, Creatinine 0.62, Sodium Level 143, Potassium Level 3.5, Chloride Level 105, Carbon Dioxide Level 29, Calcium Level 7.7L, Glomerular Filtration Rate > 60.0 Laboratory Tests 08/22/16 05:17 Calcium Level 7.7 L, Red Blood Count 3.12 L, Mean Corpuscular Volume 101.0 H, Mean Corpuscular Hemoglobin 32.6, Mean Corpuscular Hemoglobin Concent 32.2, Red Cell Distribution Width 17.1 H Microbiology 08/17/16 Blood Culture - Preliminary, Resulted No Growth after 72 hours. All specime... 08/17/16 Blood Culture - Preliminary, Resulted No Growth after 72 hours. All specime... 08/18/16 Urine Culture - Final, Complete RO ROMERO MD Aug 22, 2016 11:34
[2016-08-22] MEDS: amLODIPine 5 MG TAB PO SCH (12:27)
[2016-08-22 14:00] VITALS: BP 151/74
[2016-08-22] MEDS: cefTRIAXone SOD 1 GM in D5W MINI-BAG PLUS 50 ML IV SCH (15:06)
[2016-08-22] MEDS: CEFDINIR 300 MG CAP (OMNICEF) PO SCH (20:46)
[2016-08-22] MEDS: PRAVASTATIN 20 MG TAB PO SCH (20:46)
[2016-08-22] MEDS: IBUPROFEN 200 MG TAB PO PRN (20:47)
[2016-08-22 22:00] VITALS: BP 135/68
[2016-08-23 06:00] VITALS: BP 140/62
[2016-08-23] MEDS: LACTULOSE 20 GM/30 ML SYRUP UD PO SCH ×3 (06:12→17:54)
[2016-08-23 06:37] LABS: MEAN CORPUSCULAR HEMOGLOBIN 33.3 pg (27.0-33.0); MEAN CORPUSCULAR HGB CONC 32.7 g/dl (32.0-36.5); MEAN CORPUSCULAR VOLUME 101.6 fl (80.0-96.0); RED CELL DISTRIBUTION WIDTH 15.9 % (11.5-14.5); WHITE BLOOD COUNT 2.7 K/mm3 (4.0-10.0)
[2016-08-23 06:40] LABS: ANION GAP 7 MEQ/L (8-16); BLOOD UREA NITROGEN 10 MG/DL (7-18); CALCIUM LEVEL 7.8 MG/DL (8.8-10.2); CARBON DIOXIDE LEVEL 31 MEQ/L (21-32); CHLORIDE LEVEL 107 MEQ/L (98-107); CREATININE FOR GFR 0.59 MG/DL (0.55-1.02); GLOMERULAR FILTRATION RATE > 60.0 (>39); GLUCOSE, FASTING 208 MG/DL (83-110); POTASSIUM SERUM 3.7 MEQ/L (3.5-5.1); SODIUM LEVEL 145 MEQ/L (136-145)
[2016-08-23] MEDS: HumaLOG INSULIN (NovoLOG) PER UNIT SC SCH ×4 (08:21→21:00)
[2016-08-23] MEDS: amLODIPine 5 MG TAB PO SCH (08:21)
[2016-08-23] MEDS: CEFDINIR 300 MG CAP (OMNICEF) PO SCH ×2 (08:21→21:10)
--- NOTE | 2016-08-23 09:59 | IPNPDOC ---
Date of Service/Time 08/23/16 Progress Note SUBJECTIVE: The patient feels great has no complaints she denies any abdominal pain fevers chills nausea vomiting or diarrhea OBJECTIVE: PHYSICAL EXAMINATION: VITAL SIGNS: afebrile Please see below. GENERAL: Pleasant elderly female lying flat in bed she is in no distress whatsoever HEENT:. Pupils are equally round and reactive to light she has moist mucous membranes CARDIOVASCULAR: S1-S2 regular. RESPIRATORY:. Auscultation. ABDOMINAL: no CVA or suprapubic tenderness EXTREMITIES: No clubbing cyanosis or edema LABORATORY DATA: Stable Pancytopenia otherwise please see below MICROBIOLOGY: Urine Culture from [place] reveals Klebsiella pneumoniae resistant only to ampicillin but otherwise pansensitive IMAGING: CT of the abdomen and pelvis revealed obstructive 4 mm calculus in the left ureter pelvic junction with mild left-sided hydronephrosis as well as evidence of cirrhosis with portal venous collaterals in the upper abdomen and colonic diverticulosis DVT prophylaxis ordered?: Sequentials and teds no pharmacological agents secondary to thrombocytopenia ASSESSMENT AND PLAN: This is a 76-year-old female with dementia and cirrhosis presenting with delirium likely acute on chronic encephalopathy secondary to urinary tract infection. Problem #1 sepsis secondary to urinary source: The patient was febrile and tachycardic with urinary source of obstructing stone she is postop day #3 after stent placement he has had no more further fevers and mental status is at baseline to complete a seven-day course of antibiotics total she can be discharged back to assisted tomorrow. Problem #2 encephalopathy: Patient has an element of dementia and is a assisted resident. At presentation she also may have had some hepatic encephalopathy secondary to medication nonadherence with her lactulose at her assisted. At the present time she does not appear to be lethargic she has no asterixis on her examination I do not feel that this is playing a role in her current baseline confusion. Problem #3 lactic acidosis: Likely secondary to metformin use, sepsis syndrome did not compromise her blood pressure at any point although we do have her on IV fluids and lactic acid is trending down with only holding her metformin. We' ll continue to hold metformin upon discharge consider transitioning patient on additional oral agent versus insulin Problem #4 liver cirrhosis: The patient does not know why she has cirrhosis but believes is secondary to hepatitis C she follows with [facility] regarding this for the time being we are holding her home Lasix. The patient does have an elevated INR as well as some mild thrombocytopenia likely related to her cirrhosis. Problem #5 hypertension the patient had an elevated lactic acid and presented with sepsis syndrome and as such her atenolol 50 mg, lisinopril 20 mg and Lasix 20 mg which have all been held surprisingly she does not appear to be hypertensive during her stay. Yesterday she had become hypertensive and so she was restarted on her Norvasc 5mg Problem #6 dyslipidemia continue with pravastatin. Problem #7 vitamin D deficiency: Continue his muscle supplementation DISPOSITION: We'll plan to get the patient back to her assisted by Wednesday VS, I&O, 24H, Fishbone VS, I&O, 24H, Fishbone Vital Signs Date Time Temp Pulse Resp B/P Pulse Ox O2 Delivery O2 Flow Rate FiO2 08/23/16 08:21 88 140/62 08/23/16 06:00 98.6 16 93 Room Air I&O- Last 24 Hours up to 6 AM 08/23/16 06:00 Intake Total 1010 ml Output Total 1050 ml Balance -40 ml Laboratory Tests 2 08/22/16 11:54: Bedside Glucose (Misc Panel) 238H 08/22/16 16:42: Bedside Glucose (Misc Panel) 237H 08/22/16 20:14: Bedside Glucose (Misc Panel) 248H 08/23/16 05:29: Anion Gap 7L, Blood Urea Nitrogen 10, Creatinine 0.59, Sodium Level 145, Potassium Level 3.7, Chloride Level 107, Carbon Dioxide Level 31, Calcium Level 7.8L, Glomerular Filtration Rate > 60.0 Laboratory Tests 08/23/16 05:29 Calcium Level 7.8 L, Red Blood Count 3.12 L, Mean Corpuscular Volume 101.6 H, Mean Corpuscular Hemoglobin 33.3 H, Mean Corpuscular Hemoglobin Concent 32.7, Red Cell Distribution Width 15.9 H Microbiology 08/17/16 Blood Culture - Final, Complete NO GROWTH AFTER 5 DAYS 08/17/16 Blood Culture - Final, Complete NO GROWTH AFTER 5 DAYS 08/18/16 Urine Culture - Final, Complete RO ROMERO MD Aug 23, 2016 09:59
--- NOTE | 2016-08-23 11:51 | RO ---
DATE OF PROCEDURE: 08/21/2016 PREPROCEDURE DIAGNOSIS: Obstructing left ureteral stone. POSTPROCEDURE DIAGNOSIS: Obstructing left ureteral stone. PROCEDURE: Cystoscopy, left retrograde pyelogram with intraoperative interpretation of images, left ureteral stent placement. SURGEON: Dr. Dale Campos DIRECTOR OF SECURITY: None. ANESTHESIA: MAC. OPERATIVE INDICATIONS: This is a 76-year-old female who was admitted to the hospital a few days ago with fevers and confusion. She continued to spike fevers despite being on antibiotics that were specific for her urinary tract infection. A CT scan of the abdomen and pelvis was obtained yesterday and notable for an obstructing 4 mm proximal left ureteral stone. It was recommended she be brought to the operating room today for cystoscopy and left ureteral stent placement. DESCRIPTION OF PROCEDURE: The patient was brought to the operating room and MAC anesthesia was administered. Broad-spectrum antibiotics were already being infused on the floor. She was then placed in the dorsal lithotomy position and prepped and draped in the usual sterile fashion. A rigid cystoscope was then inserted into the urethral meatus and advanced to the bladder. Once within the bladder, an open-ended ureteral catheter was advanced up the left collecting system. A gentle retrograde pyelogram was performed; it was notable for moderate to severe left hydronephrosis down to the proximal ureter, indicating that the stone was still there. At this point, a wire was advanced up past the stone and into the left kidney. We then utilized the wire to advance a #6- Maldivian x 22-32 cm JJ ureteral stent up the left collecting system. The wire was then removed, and there were adequate curls of the stent in the left renal pelvis and in the bladder. The bladder was then emptied of all fluids and this marked the conclusion of the procedure. The patient was then taken out of the dorsal lithotomy position, awakened from anesthesia and transported to the recovery room in stable condition. ESTIMATED BLOOD LOSS: 0 mL. COMPLICATIONS: None. SPECIMENS: None. PLAN: The patient will go back to the regular nursing floor and continue to be cared for by the hospitalist service. Soon, if her fevers have resolved, and she has no pain, they will likely be able to discharge her home soon. The plan will be for followup with me in the clinic in a week or two to discuss bringing her back to remove her stone. THUY
[2016-08-23 14:00] VITALS: BP 140/78
[2016-08-23] MEDS: PRAVASTATIN 20 MG TAB PO SCH (21:10)
[2016-08-23 22:00] VITALS: BP 114/59
[2016-08-24 06:00] VITALS: BP 140/79
[2016-08-24 06:44] LABS: MEAN CORPUSCULAR HEMOGLOBIN 32.7 pg (27.0-33.0); MEAN CORPUSCULAR HGB CONC 31.9 g/dl (32.0-36.5); MEAN CORPUSCULAR VOLUME 102.5 fl (80.0-96.0); RED CELL DISTRIBUTION WIDTH 15.9 % (11.5-14.5); WHITE BLOOD COUNT 3.1 K/mm3 (4.0-10.0)
[2016-08-24 06:49] LABS: ANION GAP 7 MEQ/L (8-16); BLOOD UREA NITROGEN 9 MG/DL (7-18); CARBON DIOXIDE LEVEL 31 MEQ/L (21-32); CHLORIDE LEVEL 101 MEQ/L (98-107); GLOMERULAR FILTRATION RATE > 60.0 (>39); GLUCOSE, FASTING 225 MG/DL (83-110); POTASSIUM SERUM 3.8 MEQ/L (3.5-5.1); SODIUM LEVEL 139 MEQ/L (136-145)
[2016-08-24] MEDS: LACTULOSE 20 GM/30 ML SYRUP UD PO SCH ×4 (06:49→18:03)
[2016-08-24] MEDS: HumaLOG INSULIN (NovoLOG) PER UNIT SC SCH ×4 (08:09→21:15)
[2016-08-24] MEDS: amLODIPine 5 MG TAB PO SCH (08:10)
[2016-08-24] MEDS: CEFDINIR 300 MG CAP (OMNICEF) PO SCH ×2 (08:10→21:10)
[2016-08-24 14:00] VITALS: BP 140/86
[2016-08-24] MEDS ORDERED: CEFD300CAP PO (14:46)
--- NOTE | 2016-08-24 16:23 | DSES ---
DATE OF ADMISSION: 08/17/2016 DATE OF DISCHARGE: 08/24/2016 DISCHARGE DIAGNOSIS: Sepsis secondary to Klebsiella bacteriuria secondary to obstructing stone. SECONDARY DIAGNOSES: 1. Acute on chronic metabolic encephalopathy. 2. Lactic acidosis. 3. Liver cirrhosis. 4. Hypertension. 5. Dyslipidemia. 6. Vitamin D deficiency. CONSULTATIONS: Dr. Dale Campos, urology PROCEDURES: Cystoscopy, left retrograde pyelogram, with left ureteral stent placement on 08/21/2016. HOSPITAL COURSE: The patient is a 76-year-old female who was sent from the intermediate for acting more confused than usual and a fever. She also had reported to family members that her urine was abnormal and she thought she was getting a urinary tract infection. She has a history of frequent infections. She was admitted to the hospitalist service. She was initially found to have lactic acidosis. Although her blood pressure was never compromised, she was provided with intravenous (IV) fluids. Her symptoms did improve but her fever persisted and, as such, a CT scan of her abdomen and pelvis was checked which revealed an obstructing 4 mm stone. The patient did not have any acute kidney injury. She was seen and evaluated by Dr. Campos. It was felt that this stone is to be the potential source of infection. She was taken to the operating room where the stent was placed to decompress the kidney. Following this, the patient had no further fevers, clinical status improved, and her encephalopathy resolved. SUBJECTIVE: Today, the patient reports she feels great and wants to go home and has no complaints. OBJECTIVE: VITAL SIGNS: Temperature 97.6, pulse 77, respiratory rate 18, blood pressure 140/79, oxygen saturation 94% on room air. GENERAL: She is a very pleasant, elderly, female laying in bed, she is in no distress. HEENT: Cranial nerves II-XII are grossly intact. She has moist mucous membranes. She was awake, alert, oriented times three. CARDIOVASCULAR: S1, S2, regular. RESPIRATORY: Clear. ABDOMINAL: Benign. EXTREMITIES: No clubbing, cyanosis, or edema. LABORATORY STUDIES: WBC 3.1, hemoglobin 11, hematocrit 34.4, platelet count 95, stable. Chemistry panel: Sodium 139, potassium 3.8, chloride 101, bicarbonate 31, BUN 9, creatinine 0.7. Microbiology: Our cultures were negative here, but her culture was positive from the outside hospital with Klebsiella, was resistant to ampicillin but otherwise pansensitive. IMAGING: As outlined above. ASSESSMENT AND PLAN: This is a 76-year-old female with sepsis secondary to urinary tract infection from an obstructing 4 mm stone. PROBLEMS: 1. Sepsis secondary to urinary source. The patient is postoperative day #4 for stent placement for decompression. She did have left hydronephrosis. Her infection is resolving nicely. She has an additional 5 days of oral antibiotics which she is tolerating well at this point. She is to followup with urology within 1 week, the office will call her family with an appointment so that she can have her stent removed. She is medically stable for discharge back to her intermediate. 2. Metabolic encephalopathy secondary to acute infection. This did resolve and she is now once again oriented. She does have some underlying dementia which was worsened initially by her infection but appears to be back at her baseline. The patient also did have an elevated ammonia, and was not adherent with lactulose at her intermediate which may have been a contributing factor as well, although this is less likely. 3. Lactic acidosis. Likely secondary to her infection and may be some metformin use. We are restarting metformin at discharge. Would just simply monitor. Now that she is not having any active infection, I suspect she may be able to tolerate this medication as she was tolerating it in the past. 4. Liver cirrhosis, believed to be secondary to hepatitic C. As per the patient, she has chronic thrombocytopenia. She follows with [facility] of gastroenterology in [place]. She is being started on her home Lasix upon discharge. 5. Hypertension. The patient was not significantly hypertensive during her stay and, as such, her medications were held. They were slowly restarted. She is on Norvasc, atenolol, and we are restarting her Lasix upon discharge. We are holding her lisinopril as she does not appear to need it. 6. Dyslipidemia. The patient is on pravastatin. 7. Vitamin D deficiency. The patient is on supplementation. DISPOSITION: The patient is being discharged to [facility]. Her activity and diet are as prior to admission. She is to return to the emergency room (ER) should her symptoms worsen, followup with her primary care provider (PCP) in 7 days, and followup with urology within a week, their office will call the family for an appointment. MEDICATIONS: At the time of discharge: - cefdinir 300 mg by mouth twice a day - Norvasc 5 mg daily - atenolol 50 mg daily - bisacodyl 10 mg rectally as needed for constipation - vitamin B12 1000 mcg nightly - Lasix 20 mg daily - glipizide extended release 5 mg daily - Mucinex 600 mg twice a day as needed for nasal congestion - ibuprofen 600 mg every 6 hours as needed for pain - potassium chloride sprinkle 10 mEq daily - lactulose 45 mL by mouth five times a day - Tradjenta 5 mg by mouth daily - magnesium tablets 250 mg daily at bedtime - metformin 1 gram twice a day - Milk of Magnesia 30 mL daily as needed for constipation - pravastatin 20 mg nightly - Fleet enema sodium based rectally daily as needed for constipation - vitamin D 50,000 units every month Greater than 30 minutes spent organizing disposition.
[2016-08-24] MEDS: PRAVASTATIN 20 MG TAB PO SCH (21:11)
[2016-08-24 22:00] VITALS: BP 116/57
[2016-08-25 06:00] VITALS: BP 130/76
[2016-08-25] MEDS: LACTULOSE 20 GM/30 ML SYRUP UD PO SCH ×2 (06:07)
[2016-08-25 06:39] LABS: MEAN CORPUSCULAR HGB CONC 32.1 g/dl (32.0-36.5); MEAN CORPUSCULAR VOLUME 102.7 fl (80.0-96.0); RED CELL DISTRIBUTION WIDTH 15.9 % (11.5-14.5); WHITE BLOOD COUNT 2.8 K/mm3 (4.0-10.0)
[2016-08-25 06:41] LABS: ANION GAP 5 MEQ/L (8-16); BLOOD UREA NITROGEN 8 MG/DL (7-18); CALCIUM LEVEL 7.7 MG/DL (8.8-10.2); CARBON DIOXIDE LEVEL 33 MEQ/L (21-32); CHLORIDE LEVEL 105 MEQ/L (98-107); CREATININE FOR GFR 0.61 MG/DL (0.55-1.02); GLOMERULAR FILTRATION RATE > 60.0 (>39); GLUCOSE, FASTING 202 MG/DL (83-110); SODIUM LEVEL 143 MEQ/L (136-145)
[2016-08-25 08:01] VITALS: BP 130/76
[2016-08-25] MEDS: amLODIPine 5 MG TAB PO SCH (08:01)
[2016-08-25] MEDS: CEFDINIR 300 MG CAP (OMNICEF) PO SCH (08:01)
[2016-08-25] MEDS: HumaLOG INSULIN (NovoLOG) PER UNIT SC SCH (08:01)
--- NOTE | 2016-08-25 14:09 | IPN ---
DATE: 08/25/2016 The patient is planned to be discharged today per Dr. Thompson's initial plan. There has been no change in her status. At the time of discharge, temperature is 98.4, pulse 78, respiratory rate 18, blood pressure 130/76, 94% on room air.
== END 2016-08-25 11:20 | DRG 871 ==
LOC: M ED 10:08 → M ED INP 11:37 → M PCU 14:29 → M MS5PR 08-19 13:01
PROVIDERS: ADMIT Internal Medicine; ATTEND Internal Medicine
PROC: 0T778DZ Dilation of Left Ureter with Intraluminal Device, Via Natural or Artificial Opening Endoscopic (ICD-10-PCS; principal; 2016-08-21 13:26)
DX: A41.9 Sepsis, unspecified organism (principal); G93.41 Metabolic encephalopathy; E87.2 Acidosis; D61.818 Other pancytopenia; N13.6 Pyonephrosis; N39.0 Urinary tract infection, site not specified; F03.90 Unspecified dementia, unspecified severity, without behavioral disturbance, psychotic disturbance, mood disturbance, and anxiety; I10 Essential (primary) hypertension; E78.5 Hyperlipidemia, unspecified; E11.9 Type 2 diabetes mellitus without complications; B96.1 Klebsiella pneumoniae [K. pneumoniae] as the cause of diseases classified elsewhere; D69.6 Thrombocytopenia, unspecified; E55.9 Vitamin D deficiency, unspecified; F32.9 Major depressive disorder, single episode, unspecified; K74.60 Unspecified cirrhosis of liver; B19.20 Unspecified viral hepatitis C without hepatic coma; Z88.0 Allergy status to penicillin; Z88.2 Allergy status to sulfonamides; Z79.84 Long term (current) use of oral hypoglycemic drugs; Z79.899 Other long term (current) drug therapy

== ENCOUNTER → 2016-10-05 | Day surgery (SDC) | payer MEDICARE, MEDICAID ==
[~2016-10-05] VITALS: Ht 170.2 cm; Wt 90.3 kg
[~2016-10-05] MED LIST: AMLO5TAB2 PO; ATEN50TA2 PO; BISA10SU4 PR; CEFD1CAP8 PO; CEFD300CAP PO; CISATRACURIUM 2MG/ML 5ML VIAL ONE; CONRAY-60 60% 50ML VIAL (Q9961) As Ordered ONE; CONRAY-60 60% 50ML VIAL (Q9961) XX ONE; DRIS50002 PO; FLEEENE4 PR; FURO20TA2 PO; GLIP5TAB15 PO; GLYCOPYRROLATE INJ 0.2 MG/ML 2 ML VIAL As Ordered ONE; IBUPOTC PO; KLOR1CAP2 PO; LACT10SO29 PO; LIDOCAINE 2% INJ 100 MG/5 ML SDV (FOR ANES.) As Ordered ONE; LINE60TAB PO; LISI-538 PO; LR 1,000 ML IV SCH; LevoFLOXacin IV 500 MG in APPROPRIATE DILUENT 1 EA IV ONE; MAGN250T2 PO; METF1000 PO; METOPROLOL 5 MG/5 ML VIAL As Ordered ONE; MIDAZOLAM INJ 2 MG/2 ML VIAL (J2250) As Ordered ONE; MILKSUS PO; MONUROL PO; MUCI600T34 PO; NEOSTIGMINE 1MG/ML 5 ML SYRINGE (J2710) As Ordered ONE; NYST10CR EXT; ONDANSETRON 4MG/2ML VIAL (J2405) As Ordered ONE; ONDANSETRON 4MG/2ML VIAL (J2405) IV PRN; PHYT5TA PO; PRAV20TA2 PO; PROPOFOL 200 MG/20 ML VIAL As Ordered ONE; TRAD5TAB PO; VANCOMYCIN 1000 MG/20 ML VIAL (J3370) As Ordered ONE; VANCOMYCIN HCL 1,000 MG, VIAL MATE ADAPTER 1 EACH in D5W 250 ML IV ONE; VITA100072 PO; ZOLO25TA PO; dexameTHASONE 4 MG/ML 1ML VIAL (J1100) As Ordered ONE; fentaNYL 100 MCG/2 ML INJECTION (J3010) IV PRN; fentaNYL 250 MCG/5 ML INJECTION (J3010) As Ordered ONE
[2016-10-05] MEDS: METOPROLOL 5 MG/5 ML VIAL IV SCH ×2 (14:10→14:11)
[2016-10-05 14:11] VITALS: BP 123/57
--- NOTE | 2016-10-05 14:53 | REP ---
RETROGRADE PYELOGRAM: 10/05/2016 TECHNIQUE: Two images from C-arm fluoroscopy provided to Dr. Campos of the urology division are reviewed. CLINICAL HISTORY: Stent placement. Two images over the renal fossae and proximal course of the ureters and over the lower course of the ureters and pelvis. There are bilateral pigtail stents coiled proximally in the renal pelvis and distally in the bladder, one for each side. FLUOROSCOPY TIME: 19 seconds. Signed by Onesimo Wolfe MD 10/05/2016 03:55 P
[2016-10-05 16:00] VITALS: BP 141/78
--- NOTE | 2016-10-05 18:03 | RO ---
DATE OF PROCEDURE: 10/05/2016 PREPROCEDURE DIAGNOSIS: Bilateral kidney stones. POSTPROCEDURE DIAGNOSIS: Bilateral kidney stones. OPERATIVE PROCEDURE: Cystoscopy, removal of left ureteral stent, bilateral ureteroscopy with basket extraction of stones, bilateral retrograde pyelogram and intraoperative interpretation of images, bilateral ureteral stent placement. SURGEON: Dale Campos MD RELIEF SALESPERSON: None. ANESTHESIA: General. OPERATIVE INDICATIONS: This 76-year-old female who was found to have an obstructing approximately 4 mm proximal left ureteral stone a little over a month ago. She also had a urinary tract infection at the time and therefore a stent was placed. Of note she also had a nonobstructing 4 mm stone in the right kidney. She was brought to the operating room today for treatment of her stones. DESCRIPTION OF PROCEDURE: The patient was brought to the operating room and general anesthesia was induced. Prophylactic antibiotics were infused. She was then placed in the dorsal lithotomy position, prepped and draped in the usual sterile fashion. A rigid cystoscope was then inserted into the urethral meatus and advanced into the bladder. A guidewire was then advanced up the left collecting system. The previously placed stent was then withdrawn from the left collecting system. At this point, a ureteral access sheath was advanced over the wire up into the left collecting system. The stylet was then removed and the wire was secured to the drape to serve as a safety wire. A flexible ureteroscope was then advanced up the access sheath within the proximal left ureter. The stone was seen. The stone was then grasped with a basket and withdrawn from the left ureter. I then examined the left kidney and no additional stones were seen within the left kidney. Of note there was a lot of debris inside the left kidney. At this point a retrograde pyelogram was performed and was notable for mild left hydronephrosis and no extravasation. I then withdrew the ureteral access sheath along with the ureteroscope and no additional stones were seen within the ureter. The previously placed wire was then utilized to advance a #7-Ivorian x 22-32 cm JJ ureteral stent up into the left collection system. The wire was then removed and there were adequate curls of the stent in the left renal pelvis and in the bladder. At this point, I turned my attention to the right collecting system. The wire was then advanced up the right collecting system and then ureteral access sheath was advanced up over the wire. The stylet was then removed and then I went up the access sheath with a flexible ureteroscope. The kidney was thoroughly examined and there was a 4 mm stone seen in a midpole gris. No additional stones were seen. The stone was then grasped with a basket and withdrawn from the right kidney. Of note this stone fragmented into several pieces while withdrawing it. At this point a retrograde pyelogram was performed and it was negative for hydronephrosis and no extravasation. I then withdrew the ureteral access sheath along with the ureteroscope and no additional stones were seen within the ureter. Because I did utilize the ureteral access sheath a decision was made to leave a stent in case there was some ureteral edema. At this point, #7-Ivorian x 22-32 cm JJ ureteral stent was advanced up the right collecting system over the wire. The wire was then removed and there were adequate curls of the stent in the right renal pelvis and in the bladder. At this point, the bladder was then emptied of all fluid and this marked the conclusion of the procedure. The patient was then taken out of the dorsal lithotomy position, awakened from anesthesia and transported to the recovery room in stable condition. ESTIMATED BLOOD LOSS: 0 mL. COMPLICATIONS: None. SPECIMENS: Kidney stone fragments. PLAN: The patient will followup in the clinic in a week or two to have her stents removed. THUY
== END | disposition home or self-care (01) ==
LOC: EEVIPCON 09-25 12:00 → M SDC 11:20
PROVIDERS: ATTEND Urology
DX: N20.0 Calculus of kidney (principal); E11.9 Type 2 diabetes mellitus without complications; I10 Essential (primary) hypertension; E78.5 Hyperlipidemia, unspecified; F32.9 Major depressive disorder, single episode, unspecified; K76.9 Liver disease, unspecified; C85.12 Unspecified B-cell lymphoma, intrathoracic lymph nodes; D69.6 Thrombocytopenia, unspecified; Z79.899 Other long term (current) drug therapy; Z79.84 Long term (current) use of oral hypoglycemic drugs; Z87.891 Personal history of nicotine dependence; Z88.1 Allergy status to other antibiotic agents; Z88.0 Allergy status to penicillin; Z88.2 Allergy status to sulfonamides; Z88.6 Allergy status to analgesic agent

== ENCOUNTER 2016-10-07 18:02 | Inpatient (IN) | payer MEDICARE, MEDICAID ==
[~2016-10-07] VITALS: Ht 171.4 cm; Wt 88.6 kg
[2016-10-07 17:55] VITALS: BP 106/59
[~2016-10-07 18:02] MED LIST changes: -CEFD1CAP8 PO; -CISATRACURIUM 2MG/ML 5ML VIAL ONE; -CONRAY-60 60% 50ML VIAL (Q9961) As Ordered ONE; -CONRAY-60 60% 50ML VIAL (Q9961) XX ONE; -GLYCOPYRROLATE INJ 0.2 MG/ML 2 ML VIAL As Ordered ONE; -LIDOCAINE 2% INJ 100 MG/5 ML SDV (FOR ANES.) As Ordered ONE; -LINE60TAB PO; -LR 1,000 ML IV SCH; -LevoFLOXacin IV 500 MG in APPROPRIATE DILUENT 1 EA IV ONE; -METOPROLOL 5 MG/5 ML VIAL As Ordered ONE; -MIDAZOLAM INJ 2 MG/2 ML VIAL (J2250) As Ordered ONE; -MONUROL PO; -NEOSTIGMINE 1MG/ML 5 ML SYRINGE (J2710) As Ordered ONE; -NYST10CR EXT; -ONDANSETRON 4MG/2ML VIAL (J2405) As Ordered ONE; -ONDANSETRON 4MG/2ML VIAL (J2405) IV PRN; -PHYT5TA PO; -PROPOFOL 200 MG/20 ML VIAL As Ordered ONE; -VANCOMYCIN 1000 MG/20 ML VIAL (J3370) As Ordered ONE; -VANCOMYCIN HCL 1,000 MG, VIAL MATE ADAPTER 1 EACH in D5W 250 ML IV ONE; -dexameTHASONE 4 MG/ML 1ML VIAL (J1100) As Ordered ONE; -fentaNYL 100 MCG/2 ML INJECTION (J3010) IV PRN; -fentaNYL 250 MCG/5 ML INJECTION (J3010) As Ordered ONE
[2016-10-07] MEDS ORDERED: HEPARIN SOD (PORCINE) 5000 UNITS/ML VIAL SC SCH (18:30)
[2016-10-07] MEDS ORDERED: ONDANSETRON 4MG/2ML VIAL (J2405) IV PRN (18:30)
[2016-10-07] MEDS: NS 1,000 ML IV SCH (19:21)
[2016-10-07] MEDS ORDERED: MONUROL PO (19:24)
[2016-10-07] MEDS ORDERED: NYST10CR EXT (19:24)
[2016-10-07 19:36] LABS: BASO % 0.2 % (0.0-1.0); EOS # 0.2 K/mm3 (0.0-0.50); LARGE UNSTAINED CELL # 0.1 K/mm3 (0.0-0.4); LARGE UNSTAINED CELL % 3.3 % (0.0-4.0); LYMPH # 0.4 K/mm3 (1.5-4.5); MEAN CORPUSCULAR HEMOGLOBIN 31.7 pg (27.0-33.0); MEAN CORPUSCULAR HGB CONC 30.4 g/dl (32.0-36.5); MEAN CORPUSCULAR VOLUME 104.2 fl (80.0-96.0); MONO # 0.1 K/mm3 (0.0-0.8); MONO % 4.8 % (0.0-5.0); NEUTROPHILS # 1.7 K/mm3 (1.8-7.7); NEUTROPHILS % 69.8 % (36.0-66.0); WHITE BLOOD COUNT 2.5 K/mm3 (4.0-10.0)
[2016-10-07 19:38] LABS: ALBUMIN 2.1 GM/DL (3.2-5.2); ALBUMIN/GLOBULIN RATIO 0.66 (1.00-1.93); BILIRUBIN,TOTAL 1.3 MG/DL (0.2-1.0); CALCIUM LEVEL 7.3 MG/DL (8.8-10.2); CREATININE FOR GFR 0.96 MG/DL (0.55-1.02); GLOMERULAR FILTRATION RATE 59.8 (>39); POTASSIUM SERUM 3.6 MEQ/L (3.5-5.1); TOTAL PROTEIN 5.3 GM/DL (6.4-8.2)
[2016-10-07 19:45] LABS: PLATELET COUNT, AUTOMATED 69 k/mm3 (150-450)
[2016-10-07 20:00] VITALS: BP 140/65
[2016-10-07] MEDS ORDERED: ERTAPENEM SODIUM 1 GM in NS MINI-BAG PLUS 50 ML IV SCH (20:00)
[2016-10-07 20:06] LABS: ERYTHROCYTE SEDIMENTATION RATE 27 mm/hr (0-30)
[2016-10-07] MEDS ORDERED: FLEET ENEMA PR PRN (20:30)
[2016-10-07] MEDS ORDERED: MOM 30ML SUSPENSION UDC PO PRN (20:30)
[2016-10-07] MEDS ORDERED: IBUPROFEN 600 MG TAB PO PRN (20:30)
[2016-10-07] MEDS ORDERED: BISACODYL 10 MG SUPP PR PRN (20:30)
--- NOTE | 2016-10-07 20:35 | HPE ---
DATE OF ADMISSION: 10/07/2016 PRIMARY CARE PROVIDER: Dr. Douglas at [facility] UROLOGIST: Dr. Campos ONCOLOGIST: Dr. Mindi Bailon RESIDENCE: The patient is a [facility] resident. HISTORY OF PRESENT ILLNESS: This patient is a 76-year-old female with a past medical history significant for B cell lymphoma, liver cirrhosis, diabetes, dyslipidemia, hypertension, major depression, pancytopenia, frequent urinary tract infection (UTI)s who was transferred from [facility] to [facility] on 10/07/2016 for severe sepsis. The patient started having recurrent for almost one year and on 08/17/2016 the patient was admitted to [facility] for fatigue and confusion. During the workup, the patient was found to have obstructing 4 mm calculus in the left ureteropelvic junction with mild left sided hydronephrosis. One ureteral stent was placed by Dr. Campos. Later, the patient had an acute urinary tract infection, and the patient was hospitalized in [place]. Later on 10/05/2016, the patient had a cystoscopy with removal of the left ureteral stent and bilateral ureteroscope with basket extraction of the stones by Dr. Campos and two new ureteral stents were placed bilaterally. On the same day, the patient was found to have three organisms growing from the urine, and the patient received vancomycin and Levaquin, and the patient was discharged home. On 10/06/2016, evening time, the patient was in the long term facility and the patient started having nausea, vomiting and fever of 102, and the patient was sent to [facility] for further evaluation. During the examination, the patient was found to have severe hypotension. The patient has a mean arterial pressure around 60s. The patient was given IV normal saline bolus, IV Rocephin 2 grams times one, and the patient was started on Levophed, which was started in the peripheral line and running at 0.5 mcg per minute. The patient continued to receive IV resuscitation at 200 mL per hour and [facility] was contacted for transfer. After the patient arrived in the intensive care unit (ICU), the hospitalist team was called to complete the transfer. ALLERGIES/ADVERSE EFFECTS: Tylenol (the patient has liver cirrhosis and is not able to tolerate Tylenol). PENICILLIN (rash) SULFA (rash) HOME MEDICATIONS: - amlodipine 5 mg by mouth daily - bisacodyl 10 mg by mouth daily - Fleet enema as needed - Lasix 20 mg by mouth daily - glipizide 5 mg by mouth daily - ibuprofen 600 mg by mouth every 6 hours as needed - potassium chloride 20 mEq daily - Lisinopril 20 mg by mouth daily - magnesium oxide 250 mg by mouth daily - metformin 1000 mg by mouth daily - milk of magnesia 30 mL as needed - Monurol one packet every 3 days - pravastatin 20 mg by mouth daily - Tradjenta 5 mg by mouth daily - vitamin B12 1000 mcg by mouth daily - vitamin D2 50,000 units by mouth monthly - Zoloft 25 mg by mouth daily - Lactulose 10 grams/15 mL, 5 mL as needed PAST MEDICAL HISTORY: 1. B cell lymphoma diagnosed 6 months ago. The patient is following up with Dr. Mindi Bailon, next appointment is next week. 2. Hypertension. 3. Dyslipidemia. 4. Diabetes. 5. Autoimmune induced liver cirrhosis. 6. Vitamin D deficiency. 7. Frequent urinary tract infections. PAST SURGICAL HISTORY: 1. Cholecystectomy. 2. Hysterectomy. SOCIAL HISTORY: The patient used to smoke one pack daily for 30 years, quit 35 years ago. Denies alcohol use. Denies recreational drug use. The patient is a [employer]. The patient is a [facility] resident. REVIEW OF SYSTEMS: GENERAL: Positive fever. No chills. HEENT: No vision changes. No auditory changes. CARDIOVASCULAR: No chest pain. No palpitations. RESPIRATORY: No shortness of breath. No cough. No sputum production. GASTROINTESTINAL: Has had frequent nausea and vomiting since yesterday night. No abdominal pain. The patient has frequent bowel movements due to routine lactulose use. MUSCULOSKELETAL: No joint pain. No muscle pain. GENITOURINARY: Frequent urinary tract infections. Chronic hematuria started after the stent placement since 10/05/2016. Denies any frequency, urgency, dysuria. NEUROLOGIC: No numbness. No tingling. OBJECTIVE: VITAL SIGNS: Temperature is 98.2, pulse is 101, respirations 18, blood pressure is 106/59, pulse oximetry 98% on 2 liters nasal cannula. GENERAL: No sign of acute distress. Fatigued. Alert and oriented times three. HEENT: Pale, normocephalic, atraumatic. Extraocular muscles grossly intact. Dry oral mucosa. CARDIOVASCULAR: Tachycardic with heart rate around 100 to 110. Positive S1, S2. Positive systolic murmur best heard at second intercostal space. RESPIRATORY: Clear to auscultation bilaterally. No wheezes. No rhonchi. ABDOMEN: Soft, nontender, nondistended. Bowel sounds present. No rebound or guarding. EXTREMITIES: Trace pitting edema bilaterally. No cyanosis. GENITOURINARY: Zhao catheter was placed in [facility]. There is bright red blood noted in the collection bag. LABORATORY DATA: Collected from [facility] on 10/07/2016 at 7:55 a.m.: WBC 5.1, hemoglobin is 10.3, hematocrit is 29.7, platelet count is 86. Sodium is 139, potassium 3.9, chloride 100, carbon dioxide 21, BUN 18, creatinine 0.6, total protein 6.1, albumin 2.6, calcium 8.4, total bilirubin is 2.0, alkaline phosphatase is 127, AST is 246, ALT is 57, GFR greater than 60. Lactic acid 6.2, troponin is 0.02. IMAGING STUDIES: From [facility]: CT of the abdomen showed bilateral ureteral stent. No hydronephrosis. Splenomegaly. Small amount of ascites. Nonspecific bowel gas patterns. Homogenous hepatic parenchyma and nonspecific but possible diffuse hepatocellular disease, such as cirrhosis. Portable chest x-ray showed mild interstitial coarsening, portable technique, artifact versus chronic interstitial lung disease. No focal infiltrate or effusion. Urine culture at [facility] on 09/24/2016 showed positive for Escherichia (E) coli, Enterococcus faecalis, and vancomycin-resistant Enterococcus (VRE). ASSESSMENT AND PLAN: 1. Severe sepsis with septic shock. The patient is admitted to the intensive care unit (ICU) under inpatient status. Initially, the patient was admitted to the [facility]. Pressors were started, and the patient was continued on aggressive intravenous fluid. The patient received one dose of Rocephin. Since the patient arrived at [facility] ICU, the patient is continued on aggressive IV hydration, the mean arterial pressure being able to maintain above 65 without the use of any pressors. Repeat laboratory tests and cultures obtained and due to history of E coli, Enterococcus faecalis, and VRE, the patient was started on linezolid and ertapenem. 2. 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 The patient has been taking Lactulose. Currently, the patient does not have any signs of encephalopathy. We will continue to monitor ammonia levels. We will avoid Tylenol due to liver failure. If the patient has a recurrence of the fever, we will use ibuprofen. 3. B cell lymphoma diagnosed 6 months ago, being followed by Dr. Mindi Bailon. Is not started on any treatment. The next appointment is next week. 4. Diabetes. The patient will be on consistent carbohydrate diet and the patient will be on insulin sliding scale. Metformin will be discontinued while the patient is inpatient. 5. Hypertension. Currently, the patient has had severe hypotension from sepsis. Blood pressure medication will be on hold. 6. Dyslipidemia. The patient will be on pravastatin. 7. Deep vein thrombosis (DVT) prophylaxis. The patient will be on heparin.
[2016-10-07] MEDS: SERTRALINE HCL 25 MG TABLET PO SCH (21:47)
[2016-10-07] MEDS: LACTULOSE 20 GM/30 ML SYRUP UD PO SCH (21:47)
[2016-10-07] MEDS: CYANOCOBALAMIN 500 MCG TAB PO SCH (21:47)
[2016-10-07] MEDS: NYSTATIN CREAM 15 GM EXT SCH (21:47)
[2016-10-07] MEDS: PRAVASTATIN 20 MG TAB PO SCH (21:47)
[2016-10-07] MEDS: LINEZOLID 600 MG in APPROPRIATE DILUENT 1 EA IV SCH (21:48)
[2016-10-08] VITALS (7 sets, daily range): BP systolic 103–148; BP diastolic 52–70
[2016-10-08 05:14] LABS: MEAN CORPUSCULAR HGB CONC 31.5 g/dl (32.0-36.5); MEAN CORPUSCULAR VOLUME 104.7 fl (80.0-96.0); RED CELL DISTRIBUTION WIDTH 16.7 % (11.5-14.5); WHITE BLOOD COUNT 2.2 K/mm3 (4.0-10.0)
[2016-10-08 05:41] LABS: ANION GAP 7 MEQ/L (8-16); BLOOD UREA NITROGEN 18 MG/DL (7-18); CALCIUM LEVEL 6.5 MG/DL (8.8-10.2); CARBON DIOXIDE LEVEL 26 MEQ/L (21-32); CHLORIDE LEVEL 112 MEQ/L (98-107); CREATININE FOR GFR 0.82 MG/DL (0.55-1.02); GLOMERULAR FILTRATION RATE > 60.0 (>39); GLUCOSE, FASTING 168 MG/DL (83-110); POTASSIUM SERUM 3.6 MEQ/L (3.5-5.1); SODIUM LEVEL 145 MEQ/L (136-145)
[2016-10-08] MEDS: NS 1,000 ML IV SCH (08:56)
[2016-10-08] MEDS: NYSTATIN CREAM 15 GM EXT SCH ×2 (09:10→20:09)
[2016-10-08] MEDS: LACTULOSE 20 GM/30 ML SYRUP UD PO SCH ×4 (09:10→20:03)
[2016-10-08] MEDS: FUROSEMIDE 20 MG TAB PO SCH (09:10)
[2016-10-08] MEDS: LINEZOLID 600 MG in APPROPRIATE DILUENT 1 EA IV SCH ×2 (09:11→20:04)
[2016-10-08] MEDS ORDERED: GLUCOSE 4 GM CHEW TABLET PO PRN (10:00)
[2016-10-08] MEDS ORDERED: DEXTROSE 50% 50 ML SYRINGE IV PRN (10:00)
[2016-10-08] MEDS ORDERED: GLUCAGON FOR INJ 1 MG VIAL (J1610) SC PRN (10:00)
[2016-10-08] MEDS ORDERED: POTASSIUM CHLORIDE 10 MEQ SR TABLET PO ONE (10:00)
[2016-10-08 10:36] LABS: INR 2.32
[2016-10-08] MEDS: MEROPENEM INJ 2 GM in NS 100 ML IV SCH ×2 (11:15→19:01)
[2016-10-08] MEDS: HumaLOG INSULIN (NovoLOG) PER UNIT SC SCH ×3 (11:53→20:37)
[2016-10-08] MEDS ORDERED: MAG SULF 1GM/100ML (MAG RUN) 1 GM in APPROPRIATE DILUENT 1 EA IV ONE (14:45)
--- NOTE | 2016-10-08 19:33 | IPN ---
DATE: 10/08/2016 SUBJECTIVE: Patient seen and examined. No acute events overnight. Reported comfortable. Blood pressure improved. Denies any chest pain, pressure, discomfort, shortness of breath. VITAL SIGNS: Temperature 98.3, pulse 55, respirations 16, blood pressure 114/60, pulse oximetry 94% on room air. LABORATORY DATA: WBC 2.2, hemoglobin and hematocrit 8 over 25.5, platelets 51. Chemistry: Sodium 155, potassium 3.6, chloride 112, bicarbonate 26, BUN 18, creatinine 0.82, magnesium 1.4, ammonia level 71. PHYSICAL EXAMINATION: GENERAL: Patient in no acute distress. Comfortable, alert and oriented times three. HEENT: Pale. Normocephalic, atraumatic. Extraocular muscles grossly intact. CARDIAC: Regular rate and rhythm. Normal S1, S2. Systolic murmur detected. RESPIRATORY: Bibasilar rhonchi detected. No wheeze. ABDOMEN: Soft, nontender, nondistended. Positive bowel sounds. EXTREMITIES: Trace edema bilateral lower extremities. Zhao catheter with hematuria. Placed at [facility]. ASSESSMENT AND PLAN: This is a 76-year-old female patient with underlying medical history of B-cell lymphoma, liver cirrhosis, diabetes, dyslipidemia, hypertension, major depression, pancytopenia, frequent urinary tract infections, recent stent change by Dr. Campos, was transferred from [facility] for severe sepsis secondary to urinary tract infection (UTI). 1. Severe sepsis secondary to UTI. Patient initially on pressor at [facility]. Currently off pressors. Intravenous (IV) fluids have been discontinued given the patient was getting crackly and with stable blood pressure, resolution of lactic acidosis. Initially given Rocephin. Currently patient placed on meropenem, linezolid given history of vancomycin-resistant enterococcus (VRE) and Escherichia (E.) coli. Will followup cultures. Case discussed with Dr. Campos for hematuria. As per Dr. Campos, it is normal for patients who have instrumentation with stent placement to have hematuria. Outpatient followup recommended. 2. Hematuria. As per discussion with Dr. Campos, it is normal for patient after instrumentation with stent change to have hematuria. Outpatient followup as per Dr. Campos after treatment for UTI. 3. 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 The patient was taking lactulose. Ammonia elevated. Will continue to monitor for any signs of encephalopathy. The patient currently is not having any signs. Avoid hepatotoxic agents. Will use ibuprofen for fever. 4. B-cell lymphoma diagnosed six months ago. Follows with Dr. Mindi Sutton. Not started on any treatment. Outpatient followup. Will continue to monitor during this admission. 5. Diabetes. Consistent carbohydrate diet. Holding metformin. Insulin as per scale. 6. Hypertension. Holding blood pressure medications, given patient was initially hypotensive. Will continue to monitor. 7. Dyslipidemia. Continue statin. 8. History of congestive heart failure (CHF). Restarting Lasix given the patient is getting crackly. Will monitor intake and output. 9. Deep venous thrombosis (DVT) prophylaxis. Heparin subcutaneous. DISPOSITION: Pending clinical improvement. Will order physical therapy tomorrow.
[2016-10-08] MEDS: PRAVASTATIN 20 MG TAB PO SCH (20:04)
[2016-10-08] MEDS: SERTRALINE HCL 25 MG TABLET PO SCH (20:04)
[2016-10-08] MEDS: CYANOCOBALAMIN 500 MCG TAB PO SCH (20:04)
[2016-10-09] MEDS: MEROPENEM INJ 2 GM in NS 100 ML IV SCH ×3 (02:52→19:42)
[2016-10-09 04:00] VITALS: BP 145/81
[2016-10-09 05:41] LABS: MEAN CORPUSCULAR HEMOGLOBIN 33.1 pg (27.0-33.0); MEAN CORPUSCULAR HGB CONC 31.9 g/dl (32.0-36.5); MEAN CORPUSCULAR VOLUME 103.7 fl (80.0-96.0); RED CELL DISTRIBUTION WIDTH 16.7 % (11.5-14.5); WHITE BLOOD COUNT 2.9 K/mm3 (4.0-10.0)
[2016-10-09 05:45] LABS: ANION GAP 8 MEQ/L (8-16); BLOOD UREA NITROGEN 15 MG/DL (7-18); CALCIUM LEVEL 6.9 MG/DL (8.8-10.2); CARBON DIOXIDE LEVEL 26 MEQ/L (21-32); CHLORIDE LEVEL 110 MEQ/L (98-107); GLOMERULAR FILTRATION RATE > 60.0 (>39); GLUCOSE, FASTING 127 MG/DL (83-110); MAGNESIUM LEVEL 1.5 MG/DL (1.8-2.4); POTASSIUM SERUM 3.4 MEQ/L (3.5-5.1); SODIUM LEVEL 144 MEQ/L (136-145)
[2016-10-09 07:45] VITALS: BP 148/81
[2016-10-09] MEDS: HumaLOG INSULIN (NovoLOG) PER UNIT SC SCH ×4 (08:06→21:49)
[2016-10-09] MEDS ORDERED: POTASSIUM CHLORIDE 10 MEQ SR TABLET PO ONE (08:45)
[2016-10-09] MEDS ORDERED: MAG SULF 1GM/100ML (MAG RUN) 1 GM in APPROPRIATE DILUENT 1 EA IV SCH (09:00)
[2016-10-09] MEDS: NYSTATIN CREAM 15 GM EXT SCH ×2 (09:56→21:50)
[2016-10-09] MEDS: FUROSEMIDE 20 MG TAB PO SCH (09:57)
[2016-10-09] MEDS: LISINOPRIL 20 MG TAB PO SCH (09:57)
[2016-10-09] MEDS: LACTULOSE 20 GM/30 ML SYRUP UD PO SCH ×4 (09:58→21:49)
--- NOTE | 2016-10-09 10:29 | REP ---
Clinical: Abdominal pain. Pyelonephritis. Technique: Real time núñez scale ultrasound examination using curved array transducer. Findings: The liver is heterogeneous suggesting hepatocellular disease without focal hepatic lesion identified. Spleen is enlarged measuring 14.2 x 6.4 x 14.6 cm without focal splenic lesion identified. The pancreas is heterogeneous. The patient is status post cholecystectomy without biliary ductal dilatation and the common bile duct measures 2.4 mm diameter. Right kidney measures 13.0 x 5.5 x 5.4 cm with 1.8 cm upper pole cyst and no evidence for hydronephrosis or nephrolithiasis. The left kidney measures 13.0 x 5.7 x 4.1 cm with 2.4 cm upper pole cyst and no evidence for hydronephrosis or nephrolithiasis. Abdominal aorta is limited due to interposed bowel gas demonstrating atherosclerotic changes and measures 2.3 cm maximal diameter. Trace ascites noted. Impression: 1. Hepatocellular disease without focal hepatic lesion. 2. Splenomegaly without focal splenic lesion. 3. Relatively normal appearance of the bilateral kidneys with solitary cysts as described above. Signed by Misbah Mckeon MD 10/09/2016 10:20 A
[2016-10-09] MEDS ORDERED: IPRATROPIUM 0.5MG/ALBUTEROL 2.5MG INH SOL UD 3ML (DUONEB)(J7620) NEB PRN (11:00)
[2016-10-09] MEDS: LINEZOLID 600 MG in APPROPRIATE DILUENT 1 EA IV SCH (11:41)
[2016-10-09 11:45] VITALS: BP 147/83
[2016-10-09] MEDS: IPRATROPIUM 0.5MG/ALBUTEROL 2.5MG INH SOL UD 3ML (DUONEB)(J7620) NEB SCH ×2 (13:24→21:28)
[2016-10-09] MEDS: rifAXIMin 550 MG TAB (XIFAXAN) PO SCH ×2 (13:37→21:49)
[2016-10-09] MEDS: PHYTONADIONE 5 MG TAB PO SCH (15:50)
[2016-10-09 16:10] VITALS: BP 127/74
[2016-10-09 20:00] VITALS: BP 115/61
[2016-10-09] MEDS: LINEZOLID 600MG TABLET (ZYVOX) PO SCH (21:49)
[2016-10-09] MEDS: CYANOCOBALAMIN 500 MCG TAB PO SCH (21:49)
[2016-10-09] MEDS: SERTRALINE HCL 25 MG TABLET PO SCH (21:49)
[2016-10-09] MEDS: PRAVASTATIN 20 MG TAB PO SCH (21:49)
[2016-10-10] VITALS (7 sets, daily range): BP systolic 106–135; BP diastolic 55–72
[2016-10-10] MEDS: IPRATROPIUM 0.5MG/ALBUTEROL 2.5MG INH SOL UD 3ML (DUONEB)(J7620) NEB SCH ×4 (02:54→20:29)
[2016-10-10] MEDS: MEROPENEM INJ 2 GM in NS 100 ML IV SCH ×3 (03:20→18:56)
[2016-10-10 05:20] LABS: MEAN CORPUSCULAR HEMOGLOBIN 33.5 pg (27.0-33.0); MEAN CORPUSCULAR HGB CONC 32.7 g/dl (32.0-36.5); MEAN CORPUSCULAR VOLUME 102.4 fl (80.0-96.0); RED CELL DISTRIBUTION WIDTH 16.6 % (11.5-14.5); WHITE BLOOD COUNT 2.7 K/mm3 (4.0-10.0)
[2016-10-10 05:25] LABS: ANION GAP 9 MEQ/L (8-16); BLOOD UREA NITROGEN 10 MG/DL (7-18); CALCIUM LEVEL 6.6 MG/DL (8.8-10.2); CARBON DIOXIDE LEVEL 27 MEQ/L (21-32); CHLORIDE LEVEL 107 MEQ/L (98-107); CREATININE FOR GFR 0.66 MG/DL (0.55-1.02); GLOMERULAR FILTRATION RATE > 60.0 (>39); GLUCOSE, FASTING 141 MG/DL (83-110); MAGNESIUM LEVEL 1.3 MG/DL (1.8-2.4); POTASSIUM SERUM 3.1 MEQ/L (3.5-5.1); SODIUM LEVEL 143 MEQ/L (136-145)
[2016-10-10] MEDS: MAG SULF 1GM/100ML (MAG RUN) 1 GM in APPROPRIATE DILUENT 1 EA IV SCH ×2 (08:29→09:31)
[2016-10-10] MEDS: POTASSIUM CHLORIDE 10 MEQ SR TABLET PO SCH ×2 (08:30→21:23)
[2016-10-10] MEDS: PHYTONADIONE 5 MG TAB PO SCH (08:30)
[2016-10-10] MEDS: HumaLOG INSULIN (NovoLOG) PER UNIT SC SCH ×4 (08:30→21:00)
[2016-10-10] MEDS: LISINOPRIL 20 MG TAB PO SCH (08:31)
[2016-10-10] MEDS: rifAXIMin 550 MG TAB (XIFAXAN) PO SCH ×2 (08:31→21:23)
[2016-10-10] MEDS: LACTULOSE 20 GM/30 ML SYRUP UD PO SCH ×4 (08:31→21:22)
[2016-10-10] MEDS: FUROSEMIDE 20 MG TAB PO SCH (08:31)
[2016-10-10] MEDS: LINEZOLID 600MG TABLET (ZYVOX) PO SCH ×2 (08:31→21:23)
[2016-10-10] MEDS: NYSTATIN CREAM 15 GM EXT SCH ×2 (08:32→21:23)
--- NOTE | 2016-10-10 10:31 | IPN ---
DATE OF SERVICE: 10/09/2016 The patient seen and examined. No acute events overnight. Denies any fevers, chills, chest pain, pressure, or discomfort. Feeling much better. VITAL SIGNS: Temperature 97.3, pulse 84, respiration 20, blood pressure 127/74, pulse oximetry 95% on room air. LABORATORY: WBC 2.9, hemoglobin and hematocrit 9.1 over 28.5, platelets 59. Chemistry: Sodium 144, potassium 3.4, chloride 110, bicarbonate 26, BUN 15, creatinine 0.8, magnesium 1.4. PHYSICAL EXAMINATION: GENERAL: The patient in no acute distress. Comfortable. Alert and oriented times three. HEENT: Pale. Normocephalic, atraumatic. Extraocular muscles grossly intact. CARDIAC: Regular rate and rhythm. Normal S1, S2. Systolic murmur detected. RESPIRATORY: Bibasilar rhonchi detected. No wheeze. ABDOMEN: Soft, nontender, nondistended. Positive bowel sounds. EXTREMITIES: Trace edema bilateral lower extremities. Zhao catheter with hematuria. Placed at [facility]. ASSESSMENT AND PLAN: This is a 76-year-old female patient with underlying medical history of B-cell lymphoma, liver cirrhosis, diabetes, dyslipidemia, hypertension, major depression, pancytopenia, frequent urinary tract infection (UTI), recent stent change by Dr. Campos, was transferred from [facility] for severe sepsis secondary to UTI. PROBLEMS: 1. Severe sepsis secondary to urinary tract infection. The patient initially on pressors at [facility]. Currently, off pressors. Intravenous (IV) fluids initially given here and currently discontinued. Resolution of lactic acidosis. Initially, on Rocephin. Currently, on meropenem and linezolid, given history of vancomycin-resistant enterococcus (VRE) and Escherichia (E.) coli. Followup cultures. The case discussed with Dr. Campos for hematuria. As per Dr. Campos, it is normal for patients to have hematuria after instrumentation with stent placement. Outpatient followup recommended. 2. Hematuria. As per Dr. Campos, normal for the patient after instrumentation with stent change to have hematuria. Outpatient followup recommended by Dr. Campos after treatment for UTI. 3. 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 The patient was taking lactulose. Ammonia level mildly elevated. Rifaximin has been started. The patient's mental status remaining at baseline. Will monitor for signs of encephalopathy. Avoid hepatotoxic agents. Ibuprofen for fever. 4. B-cell lymphoma diagnosed 6 months ago. Followup with Dr. Mindi Bailon. Not started on any treatment yet. Outpatient followup. Continue to monitor. 5. Diabetes type 2. Consistent-carbohydrate diet. Holding metformin. Insulin as per protocol. 6. Hypertension. Holding blood pressure medications, given the patient initially hypotensive. Currently, Lasix has been restarted, given the patient is having mild crackles. Will continue to follow. 7. Dyslipidemia. Continue statin. 8. History of congestive heart failure (CHF). Restarting Lasix, given the patient having mild crackles. Strict intake and output (I and O), daily weight. 9. Deep venous thrombosis (DVT) prophylaxis. Heparin subcutaneous. DISPOSITION PLANNING: Pending clinical improvement, physical therapy, and cultures.
[2016-10-10 16:19] LABS: ANION GAP 9 MEQ/L (8-16); BLOOD UREA NITROGEN 10 MG/DL (7-18); CALCIUM LEVEL 6.6 MG/DL (8.8-10.2); CARBON DIOXIDE LEVEL 28 MEQ/L (21-32); CHLORIDE LEVEL 102 MEQ/L (98-107); CREATININE FOR GFR 0.87 MG/DL (0.55-1.02); GLOMERULAR FILTRATION RATE > 60.0 (>39); GLUCOSE, FASTING 227 MG/DL (83-110); MAGNESIUM LEVEL 1.5 MG/DL (1.8-2.4); POTASSIUM SERUM 3.5 MEQ/L (3.5-5.1); SODIUM LEVEL 139 MEQ/L (136-145)
[2016-10-10] MEDS ORDERED: MAG SULF 1GM/100ML (MAG RUN) 1 GM in APPROPRIATE DILUENT 1 EA IV ONE (17:00)
[2016-10-10] MEDS: PRAVASTATIN 20 MG TAB PO SCH (21:23)
[2016-10-10] MEDS: CYANOCOBALAMIN 500 MCG TAB PO SCH (21:23)
[2016-10-10] MEDS: SERTRALINE HCL 25 MG TABLET PO SCH (21:23)
[2016-10-11] MEDS: IPRATROPIUM 0.5MG/ALBUTEROL 2.5MG INH SOL UD 3ML (DUONEB)(J7620) NEB SCH ×4 (01:16→21:07)
[2016-10-11] MEDS: MEROPENEM INJ 2 GM in NS 100 ML IV SCH ×2 (02:30→13:28)
[2016-10-11 06:00] VITALS: BP 124/64
[2016-10-11 06:58] LABS: MEAN CORPUSCULAR HGB CONC 33.1 g/dl (32.0-36.5); MEAN CORPUSCULAR VOLUME 102.7 fl (80.0-96.0); RED CELL DISTRIBUTION WIDTH 16.7 % (11.5-14.5); WHITE BLOOD COUNT 2.8 K/mm3 (4.0-10.0)
[2016-10-11 07:00] LABS: ANION GAP 6 MEQ/L (8-16); BLOOD UREA NITROGEN 9 MG/DL (7-18); CALCIUM LEVEL 6.8 MG/DL (8.8-10.2); CARBON DIOXIDE LEVEL 29 MEQ/L (21-32); CHLORIDE LEVEL 107 MEQ/L (98-107); CREATININE FOR GFR 0.64 MG/DL (0.55-1.02); GLOMERULAR FILTRATION RATE > 60.0 (>39); GLUCOSE, FASTING 138 MG/DL (83-110); MAGNESIUM LEVEL 1.6 MG/DL (1.8-2.4); POTASSIUM SERUM 4.3 MEQ/L (3.5-5.1); SODIUM LEVEL 142 MEQ/L (136-145)
[2016-10-11] MEDS ORDERED: MAG SULF 1GM/100ML (MAG RUN) 1 GM in APPROPRIATE DILUENT 1 EA IV ONE (08:00)
[2016-10-11] MEDS: LACTULOSE 20 GM/30 ML SYRUP UD PO SCH ×4 (08:24→22:12)
[2016-10-11] MEDS: LINEZOLID 600MG TABLET (ZYVOX) PO SCH ×2 (08:25→22:14)
[2016-10-11] MEDS: PHYTONADIONE 5 MG TAB PO SCH (08:25)
[2016-10-11] MEDS: HumaLOG INSULIN (NovoLOG) PER UNIT SC SCH ×4 (08:25→20:34)
[2016-10-11] MEDS: rifAXIMin 550 MG TAB (XIFAXAN) PO SCH ×2 (08:25→22:14)
[2016-10-11] MEDS: LISINOPRIL 20 MG TAB PO SCH (08:25)
[2016-10-11] MEDS: POTASSIUM CHLORIDE 10 MEQ SR TABLET PO SCH ×2 (08:26→22:13)
[2016-10-11] MEDS: NYSTATIN CREAM 15 GM EXT SCH ×2 (08:26→22:15)
[2016-10-11] MEDS: FUROSEMIDE 20 MG TAB PO SCH (08:26)
[2016-10-11 14:00] VITALS: BP 107/61
[2016-10-11] MEDS: MEROPENEM INJ 1 GM in D5W MINI-BAG PLUS 100 ML IV SCH (20:17)
[2016-10-11 22:00] VITALS: BP 122/61
[2016-10-11] MEDS: PRAVASTATIN 20 MG TAB PO SCH (22:13)
[2016-10-11] MEDS: CYANOCOBALAMIN 500 MCG TAB PO SCH (22:15)
[2016-10-11] MEDS: SERTRALINE HCL 25 MG TABLET PO SCH (22:15)
[2016-10-12] MEDS: IPRATROPIUM 0.5MG/ALBUTEROL 2.5MG INH SOL UD 3ML (DUONEB)(J7620) NEB SCH ×2 (01:21→07:14)
[2016-10-12] MEDS: MEROPENEM INJ 1 GM in D5W MINI-BAG PLUS 100 ML IV SCH ×2 (04:18→12:34)
[2016-10-12 06:00] VITALS: BP 127/72
[2016-10-12 07:10] LABS: MEAN CORPUSCULAR HEMOGLOBIN 33.6 pg (27.0-33.0); MEAN CORPUSCULAR HGB CONC 32.3 g/dl (32.0-36.5); MEAN CORPUSCULAR VOLUME 103.8 fl (80.0-96.0); RED CELL DISTRIBUTION WIDTH 16.4 % (11.5-14.5); WHITE BLOOD COUNT 2.6 K/mm3 (4.0-10.0)
[2016-10-12 07:20] LABS: ANION GAP 5 MEQ/L (8-16); BLOOD UREA NITROGEN 9 MG/DL (7-18); CALCIUM LEVEL 6.8 MG/DL (8.8-10.2); CARBON DIOXIDE LEVEL 29 MEQ/L (21-32); CHLORIDE LEVEL 109 MEQ/L (98-107); GLOMERULAR FILTRATION RATE > 60.0 (>39); GLUCOSE, FASTING 152 MG/DL (83-110); MAGNESIUM LEVEL 1.5 MG/DL (1.8-2.4); POTASSIUM SERUM 4.3 MEQ/L (3.5-5.1); SODIUM LEVEL 143 MEQ/L (136-145)
[2016-10-12 08:12] VITALS: BP 127/72
[2016-10-12] MEDS: PHYTONADIONE 5 MG TAB PO SCH (08:12)
[2016-10-12] MEDS: LACTULOSE 20 GM/30 ML SYRUP UD PO SCH ×2 (08:12→13:00)
[2016-10-12] MEDS: LISINOPRIL 20 MG TAB PO SCH (08:12)
[2016-10-12] MEDS: rifAXIMin 550 MG TAB (XIFAXAN) PO SCH (08:12)
[2016-10-12] MEDS: HumaLOG INSULIN (NovoLOG) PER UNIT SC SCH ×2 (08:12→12:34)
[2016-10-12] MEDS: LINEZOLID 600MG TABLET (ZYVOX) PO SCH (08:12)
[2016-10-12] MEDS: FUROSEMIDE 20 MG TAB PO SCH (08:12)
[2016-10-12] MEDS: NYSTATIN CREAM 15 GM EXT SCH (08:13)
--- NOTE | 2016-10-12 08:42 | IPN ---
DATE: 10/10/2016 The patient seen and examined. No acute events overnight. Denies any fevers, chills, chest pain, pressure, or discomfort, feeling much better, in the chair. VITAL SIGNS: Temperature 96.1, pulse 84, respiration 18, blood pressure 113/55, pulse oximetry 98% on room air. LABORATORY: WBC 2.7, hemoglobin and hematocrit 9.8/30.1, platelets 56. Chemistry: Sodium 139, potassium 3.5, chloride 102, bicarbonate 28, BUN 10, creatinine 0.87, magnesium 1.5. PHYSICAL EXAMINATION: GENERAL: The patient in no acute distress, comfortable, alert and oriented times three. HEENT: Pale. Normocephalic, atraumatic. Extraocular muscles grossly intact. CARDIAC: Regular rate and rhythm, normal S1, S2. Systolic murmur is detected. RESPIRATORY: Bibasilar rhonchi mildly improved. ABDOMEN: Soft, nontender. Positive bowel sounds. EXTREMITIES: Trace edema bilateral lower extremities. : Zhao catheter with continued hematuria, placed in [facility]. ASSESSMENT AND PLAN: This is a 76-year-old female patient with underlying medical history of B-cell lymphoma, liver cirrhosis, diabetes, dyslipidemia, hypertension, major depression, pancytopenia, frequent urinary tract infection (UTI), recent stent change by Dr. Campos, was transferred from [facility] for severe sepsis secondary to UTI. PROBLEMS: 1. Severe sepsis secondary to UTI. The patient initially on pressors at [facility], currently off pressors. Intravenous (IV) fluids initially given and currently discontinued with resolution of lactic acidosis. Initially, on Rocephin. Currently, on meropenem and linezolid, given recent history of vancomycin-resistant enterococcus (VRE) Escherichia (E.) coli and Enterococcus faecium. Followup cultures. The case discussed with Dr. Campos. As per Dr. Campos, hematuria is normal for patients who have instrumentation and stent placement. Outpatient followup recommended. 2. Hematuria. Case discussed with Dr. Campos, recommends outpatient followup after treatment for UTI. 3. 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 The patient was taking lactulose. Ammonia level slightly elevated. Rifaximin has been added. The patient's mental status remains at baseline. Continue to monitor for signs of encephalopathy. Avoid hepatotoxic agents. Ibuprofen for fever. 4. B-cell lymphoma diagnosed six months ago. Followup with Dr. Mindi Bailon. Not started on any treatment yet. Outpatient followup. Continue to monitor. 5. Diabetes type 2. Consistent-carbohydrate diet. Holding metformin. Insulin as per protocol. 6. Hypertension. Holding blood pressure medications, initially given patient was hypotensive. Currently, Lasix has been restarted, given the patient has mild rhonchi. Continue to monitor fluid status. 7. Hypokalemia and hypomagnesemia. Supplement. We will continue to monitor. 8. Dyslipidemia. Continue statin. 9. History of congestive heart failure. Lasix restarted. Strict intake and output (I and O), daily weight. 10. Deep venous thrombosis (DVT) prophylaxis. Heparin subcutaneous. DISPOSITION PLANNING: Pending clinical improvement, physical therapy, and final cultures. Request sent to [facility] for final cultures.
[2016-10-12] MEDS ORDERED: CEFD1CAP8 PO (09:49)
[2016-10-12] MEDS ORDERED: LINE60TAB PO (09:49)
[2016-10-12] MEDS ORDERED: PHYT5TA PO (09:49)
[2016-10-12] MEDS ORDERED: MAG SULF 1GM/100ML (MAG RUN) 1 GM in APPROPRIATE DILUENT 1 EA IV ONE (10:45)
--- NOTE | 2016-10-12 17:23 | IPN ---
DATE: 10/11/2016 The patient seen and examined. No acute events overnight. Denies any chest pain, pressure, or discomfort. Denies any abdominal pain. VITAL SIGNS: Temperature 97.1, pulse 100, respiration 18, blood pressure 124/64, pulse oximetry 97% on room air. LABORATORY: WBC 2.8, hemoglobin and hematocrit 9.5/28.7, platelets 58. Chemistry: Sodium 142, potassium 4.3, chloride 107, bicarbonate 29, BUN 9, creatinine 0.64, magnesium 1.6. PHYSICAL EXAMINATION: GENERAL: The patient in no acute distress, comfortable, alert and oriented times three. HEENT: Pale. Normocephalic, atraumatic. Extraocular muscles grossly intact. CARDIAC: Regular rate and rhythm, normal S1, S2. Systolic murmur is detected 2/6. RESPIRATORY: Minimal bibasilar rhonchi. No wheeze. ABDOMEN: Soft, nontender. Non-distended. Positive bowel sounds. EXTREMITIES: Trace edema bilateral lower extremities. : Zhao catheter in place with some hematuria, placed in [facility]. ASSESSMENT AND PLAN: This is a 76-year-old female patient with underlying medical history of B-cell lymphoma, liver cirrhosis, diabetes, dyslipidemia, hypertension, major depression, pancytopenia, frequent urinary tract infection (UTI), recent stent change by Dr. Campos, was transferred from [facility] for severe sepsis secondary to UTI. PROBLEMS: 1. Severe sepsis secondary to UTI. The patient initially on pressors at [facility], currently off pressors. Intravenous (IV) fluids initially given and currently discontinued. Resolution of lactic acidosis. Initially, on Rocephin. Currently, on meropenem and linezolid, given recent history of vancomycin-resistant enterococcus (VRE) Escherichia (E.) coli. Followup cultures. The case discussed with Dr. Campos for hematuria. As per Dr. Campos it is normal for patients to have hematuria after instrumentation or stent placement. Outpatient followup recommended. 2. Hematuria with coagulopathy due to cirrhosis. As per Dr. Campos normal for patient after procedures with instrumentation with stent change to have hematuria. Outpatient followup recommended by Dr. Campos. Continue treatment for urinary tract infection as mentioned above. Vitamin K has been ordered. 3. 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 The patient has been taking lactulose. Ammonia level slightly elevated. Rifaximin has been started and patient's mental status remains at baseline. We will monitor encephalopathy. Avoid hepatotoxic agents. 4. B-cell lymphoma diagnosed six months ago. Follows with Dr. Mindi Bailon. Not started on any treatment. Outpatient followup. 5. Diabetes type 2. Initially consistent-carbohydrate diet, withholding metformin. Insulin as per protocol. Follow up fingersticks. 6. Hypertension. Initially blood pressure has been on hold. Currently Lasix has been restarted given the patient is mildly fluid overloaded we will continue to monitor. 7. Dyslipidemia. Continue statin. 8. History of congestive heart failure. Lasix restarted. Strict intake and output (I and O), daily weight. 10. Deep venous thrombosis (DVT) prophylaxis. Heparin subcutaneous. DISPOSITION PLANNING: Physical therapy, clinical improvement likely discharge over the next 24-48 hours.
--- NOTE | 2016-10-12 20:13 | DSES ---
DATE OF ADMISSION: 10/07/2016 DATE OF DISCHARGE: 10/12/2016 PRIMARY CARE PROVIDER: Dr. Douglas from [facility] UROLOGY: Dr. Campos ONCOLOGIST: Dr. Mindi Bailon FINAL DIAGNOSES: 1. Severe sepsis secondary to urinary tract infection with Enterococcus coli and vancomycin-resistant Enterococcus. Recent instrumentation by Dr. Campos. 2. Hematuria. 3. 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 4. B-cell lymphoma. 5. Type 2 diabetes. 6. Hypertension. 7. Dyslipidemia. 8. History of congestive heart failure. HISTORY OF PRESENT ILLNESS: This is a 76-year-old female patient with underlying medical history of B-cell lymphoma, liver cirrhosis, diabetes, dyslipidemia, hypertension, major depression, pancytopenia, frequent urinary tract infection (UTI), and recent urinary instrumentation with stent change transferred from [facility] to [facility] 10/07/2016 for severe sepsis secondary to UTI with hypotension as well. Given intravenous (IV) fluids. Recently, 08/17/2016, patient was admitted to [facility] with acute confusion. During the workup, patient had an obstructing 4 mm calculus in the left ureteropelvic junction with mild left-sided hydronephrosis. Stent was placed by Dr. Campos. Later the patient had an acute UTI infection, and the patient was hospitalized in [place]. Later, on 10/05/2016, patient had a cystoscopy with removal of the stent and bilateral ureteral scope with extraction of stone by Dr. Campos and had two stents placed bilaterally. On the same day, patient was found to have three organisms growing in the urine, and patient received vancomycin and Levaquin, and patient is discharged home on 10/06/2016 evening time. Patient was in senior living facility, and patient started having nausea, vomiting, fevers of 102, and patient was sent to [facility] for further evaluation. During that time, patient was found to have severe hypotension and has mean arterial pressure of 60. Given IV fluids, bolus of Rocephin, and started on Levophed. Through the periphery, patient continued to receive IV fluids during that time and transferred to [facility] Intensive Care Unit (ICU). By the time patient arrived at ICU, patient is off Levophed and on IV fluids. HOSPITAL COURSE: Patient was admitted to the hospital and started on linezolid given vancomycin-resistant Enterococcus (VRE) and meropenem. Given the severity of patient's condition, cultures were sent. Patient's condition progressively improved. IV fluids were initially given. Later, given stable blood pressure, IV fluids were discontinued. Patient's blood pressure medication and Lasix were restarted. Physical therapy (PT) was done. Patient originally was from half-way facility. Case was discussed with Dr. Campos. As per Dr. Campos, hematuria is a natural occurrence after the instrumentation she has received. Zhao catheter was initially placed. Later patient was voiding off the Zhao catheter. Vitamin K was given for coagulopathy. Liver function was followed. Coagulopathy secondary to underlying liver disease. Patient currently tolerating oral. Comfortable with stable vital signs. Ready for discharge for further care as outpatient. VITAL SIGNS: Temperature 97.5, pulse 99, respirations 18, blood pressure 127/72, pulse oximetry 94% on room air. LABORATORY DATA: WBC 2.6, hemoglobin and hematocrit 9.4/29, platelets 454. Chemistry: Sodium 143, potassium 4.3, chloride 109, bicarbonate 29, BUN 9, creatinine 0.6, magnesium 1.5. DISCHARGE MEDICATIONS: - cefdinir 300 mg by mouth twice a day - Patient has received Rocephin at [facility] with no complication, although patient has history of unknown PENICILLIN allergy. - linezolid 600 mg by mouth twice a day for 7 more days - vitamin K 5 mg by mouth daily - Dulcolax suppository 10 mg by mouth daily as needed - vitamin B12 at 1000 mcg by mouth at bedtime - Lasix 20 mg by mouth daily - glipizide 5 mg by mouth daily - ibuprofen 600 mg by mouth every 6 hours as needed - potassium chloride 20 mg by mouth daily - lactulose 45 mL by mouth four times a day - Tradjenta 5 mg by mouth at bedtime - lisinopril 20 mg by mouth daily - magnesium 250 mg by mouth at bedtime - metformin 1000 mg by mouth twice a day - milk of magnesia 30 mL by mouth daily as needed - nystatin cream as needed - pravastatin 20 mg at bedtime - Zoloft 25 mg by mouth at bedtime - Fleet enema per rectal daily as needed - vitamin D 50,000 units by mouth monthly DISCHARGE INSTRUCTIONS: Patient is discharged to [facility]. Followup with primary care provider in 7 days for further care. Followup with urology, Dr. Campos, in 1-2 weeks. Return to the hospital if symptoms return.
== END 2016-10-12 13:20 | DRG 871 ==
LOC: PREOBSVTOIN 18:10 → OBSVTOIN 18:13 → M ICU 18:13 → INTOOBSV 18:13 → M PCU 10-08 17:39 → M MS5PR 10-10 20:13
PROVIDERS: ADMIT Internal Medicine; ATTEND Internal Medicine
DX: A41.9 Sepsis, unspecified organism (principal); R65.21 Severe sepsis with septic shock; N39.0 Urinary tract infection, site not specified; C85.12 Unspecified B-cell lymphoma, intrathoracic lymph nodes; D61.818 Other pancytopenia; D68.4 Acquired coagulation factor deficiency; B95.2 Enterococcus as the cause of diseases classified elsewhere; E11.9 Type 2 diabetes mellitus without complications; I50.9 Heart failure, unspecified; I10 Essential (primary) hypertension; R31.9 Hematuria, unspecified; E55.9 Vitamin D deficiency, unspecified; E87.6 Hypokalemia; K74.60 Unspecified cirrhosis of liver; E78.5 Hyperlipidemia, unspecified; F32.9 Major depressive disorder, single episode, unspecified; K76.9 Liver disease, unspecified; Z79.899 Other long term (current) drug therapy; Z79.84 Long term (current) use of oral hypoglycemic drugs; Z87.891 Personal history of nicotine dependence; Z88.0 Allergy status to penicillin; Z88.2 Allergy status to sulfonamides; Z88.6 Allergy status to analgesic agent; Z87.440 Personal history of urinary (tract) infections; Z16.21 Resistance to vancomycin; Z90.49 Acquired absence of other specified parts of digestive tract; Z90.710 Acquired absence of both cervix and uterus; Z96.0 Presence of urogenital implants